=== PATIENT | male | born 1945 | race Caucasian/White ===

== ENCOUNTER → 2017-10-29 | Outpatient (CLI) | payer MEDICARE, BC ==
--- NOTE | 2017-10-29 15:54 | CT ---
EXAMINATION TYPE: CT sinus wo con DATE OF EXAM: 10/29/2017 COMPARISON: NONE HISTORY: Headaches, right sided cheek pain and dental pain. CT DLP: 673.[address] of the paranasal sinuses was performed in the axial and coronal planes. Bone and soft tissue settings are submitted. The paranasal sinuses demonstrate normal aeration and development. The paranasal sinuses are free of mucosal thickening or air fluid level. Small mucous retention cyst or polyp right maxillary sinus anterior wall. The osteal meatal units are patent bilaterally. The nasal septum is midline. No bony destructive changes are seen within the field of view. IMPRESSION: No evidence for acute or chronic sinusitis. Small mucous retention cyst or polyp right maxillary sinu s anterior wall.
== END | disposition home or self-care (01) ==
LOC: RADCTMAIN 15:26
PROVIDERS: ATTEND Family Medicine
DX: J34.1 Cyst and mucocele of nose and nasal sinus (principal)
CPT/HCPCS: 70486

== ENCOUNTER → 2017-11-26 | Outpatient (CLI) | payer MEDICARE, BC ==
--- NOTE | 2017-11-26 15:53 | XR ---
EXAMINATION TYPE: XR ankle complete RT DATE OF EXAM: 11/26/2017 COMPARISON: NONE HISTORY: 72-year-old male medial right ankle pain after fall 5 days ago TECHNIQUE: 3 views FINDINGS: There are corticated ossific densities below the medial malleolus. However, there is prominent medial soft tissue swelling. No acute fracture, subluxation, or dislocation. Ankle mortise is congruent. Ta lar dome is intact. Small plantar and posterior calcaneal spurs. Subtalar joint is aligned. IMPRESSION: Small chronic ununited fracture fragments below the medial malleolus compatible with old injury. Bello ayaka, there is prominent medial soft tissue swelling which could reflect underlying superimposed acute ligamentous injury.
== END | disposition home or self-care (01) ==
LOC: RADXRYALE 14:50
PROVIDERS: ATTEND Physician Assistant Medical
DX: S82.51XK Displaced fracture of medial malleolus of right tibia, subsequent encounter for closed fracture with nonunion (principal)

== ENCOUNTER → 2017-12-07 | Outpatient (CLI) | payer MEDICARE, BC ==
--- NOTE | 2017-12-07 14:18 | US ---
EXAMINATION TYPE: US venous doppler duplex LE RT DATE OF EXAM: 12/07/2017 2:10 PM COMPARISON: NONE CLINICAL HISTORY: M79.661 PAIN IN RT LOWER EXTREMITY. Right ankle/foot injury. Pain in right calf SIDE PERFORMED: Right TECHNIQUE: The lower extremity deep venous system is examined utilizing real time linear array sonog rosamaria with graded compression, doppler sonography and color-flow sonography. VESSELS IMAGED: External Iliac Vein (EIV) Common Femoral Vein Deep Femoral Vein Greater Saphenous Vein * Femoral Vein Popliteal Vein Small Saphenous Vein * Proximal Calf Veins (* superficial vessels) Right Leg: Negative for DVT. Positive for superficial thrombosis in the right GSV below the knee to the ankle. Grayscale, color doppler, spectral doppler imaging performed of the deep veins of the right lower ext remity. There is normal flow, compressibility, vascular waveforms. IMPRESSION: No ultrasound evidence for acute DVT in the right lower extremity. Acute SVT greater s aphenous vein level noted.
== END | disposition home or self-care (01) ==
LOC: RADUSWWP 12:59
PROVIDERS: ATTEND Family Medicine
DX: I47.1 Supraventricular tachycardia (principal)

== ENCOUNTER → 2018-01-14 | Outpatient (CLI) | payer MEDICARE, BC ==
--- NOTE | 2018-01-14 15:50 | US ---
EXAMINATION TYPE: US carotid duplex BILAT DATE OF EXAM: 01/14/2018 COMPARISON: Carotid ultrasound September 22, 2014 CLINICAL HISTORY: R42 Dizziness and Giddiness; dizziness noted with change in position EXAM MEASUREMENTS: RIGHT: Peak Systolic Velocity (PSV) cm/sec ----- Right CCA: 59.0 ----- Right ICA: 79.7 ----- Right ECA: 122.1 ICA/CCA ratio: 1.4 RIGHT: End Diastole cm/sec ----- Right CCA: 18.0 ----- Right ICA: 30.5 ----- Right ECA: 22.0 LEFT: Peak Systolic Velocity (PSV) cm/sec ----- Left CCA: 83.2 ----- Left ICA: 75.2 ----- Left ECA: 86.2 ICA/CCA ratio: 0.9 LEFT: End Diastole cm/sec ----- Left CCA: 25.9 ----- Left ICA: 25.9 ----- Left ECA: 16.3 VERTEBRALS (direction of flow): Right Vertebral: Antegrade Left Vertebral: Antegrade Rhythm: Normal Grayscale images redemonstrate mild hyperechoic eccentric plaque at right carotid bulb. There is kam lar mild eccentric hyperechoic plaque at left carotid bulb also redemonstrated. Velocity measurements and ratios remain within normal limits bilaterally. Incidental finding of left mixed thyroid nodule is noted mid pole and size = 0.7 x 0.7 x 0.4cm. IMPRESSION: No hemodynamically significant stenosis is seen in either internal carotid artery. No si gnificant change from prior.
== END | disposition home or self-care (01) ==
LOC: RADUSWWP 14:23
PROVIDERS: ATTEND Family Medicine
DX: R42 Dizziness and giddiness (principal); I80.01 Phlebitis and thrombophlebitis of superficial vessels of right lower extremity; E78.2 Mixed hyperlipidemia
CPT/HCPCS: 93880

== ENCOUNTER 2019-01-29 18:57 | Emergency (ER) | payer MEDICARE, BC ==
[2019-01-29 19:06] VITALS: RESP 16
--- NOTE | 2019-01-29 19:39 | ED ---
General Adult HPI <Joss Huang - Last Filed: 01/29/19 20:26> - General Source: patient, RN notes reviewed, old records reviewed Mode of arrival: ambulatory Limitations: no limitations <Cesar Smith - Last Filed: 01/29/19 21:09> - General Chief complaint: Head Injury Stated complaint: Head injury, headache Time Seen by Provider: 01/29/19 19:09 - History of Present Illness Initial comments: 73-year-old male patient with no pertinent past medical history presents to ED after a trauma to the back of his head. Patient reports that he was pulling a large satellite TV dish out of the ground with a tractor, patient reports that the dish fell forward and hit him on the back of his head. Patient reports that his had been continued forward into the padded steering well. Patient denies loss of consciousness. Patient does report a mild headache and is occipital lobe with the trauma occurred. Patient denies any use of blood thinners. Patient denies any other complaints. Patient denies a change in vision, loss of bowel or bladder control, paresthesias, upper or lower extremity weakness. Systemic: Pt denies fatigue, myalgia, fever/chills, rash. Pt denies weakness, night sweats, weight loss. Neuro: Pt denies headache, visual disturbances, syncope or pre-syncope. HEENT: Pt denies ocular discharge or irritation, otalgia, rhinorrhea, pharyngitis or notable lymphadenopathy. Cardiopulmonary: Pt denies chest pain, SOB, heart palpitations, dyspnea on exertion. Abdominal/GI: Pt denies abdominal pain, n/v/d. : Pt denies dysuria, burning w/ urination, frequency/urgency. Denies new onset urinary or bowel incontinence. MSK: Pt denies myalgia, loss of strength or function in extremities. Neuro: Pt denies new onset weakness, paresthesias. (Cesar Smith) - Related Data Home Medications Medication Instructions Recorded Confirmed Lansoprazole [Prevacid] 15 mg PO DAILY 02/25/15 02/25/15 Multivitamins, Thera [Theragran] 1 each PO DAILY@1200 02/25/15 02/25/15 Promethazine [Phenergan] 12.5 mg PO Q4HR 02/25/15 02/25/15 Triamcinolone 0.1% Ointment 02/25/15 02/25/15 [Kenalog 0.1% Ointment] Allergies Allergy/AdvReac Type Severity Reaction Status Date / Time acetaminophen [From [place]] Allergy Unknown Verified 01/29/19 19:06 amoxicillin Allergy Unknown Verified 01/29/19 19:06 bupropion HCl Allergy Unknown Verified 01/29/19 19:06 [From Wellbutrin] citalopram hydrobromide Allergy Unknown Verified 01/29/19 19:06 [From Celexa] hydrocodone bitartrate Allergy Unknown Verified 01/29/19 19:06 [From [place]] Penicillins Allergy Unknown Verified 01/29/19 19:06 promethazine HCl AdvReac Unknown Verified 01/29/19 19:06 [From Phenergan] Review of Systems ROS Other: All systems not noted in ROS Statement are negative. <Joss Huang - Last Filed: 01/29/19 20:26> ROS Other: All systems not noted in ROS Statement are negative. <Cesar Smith - Last Filed: 01/29/19 21:09> ROS Statement: Those systems with pertinent positive or pertinent negative responses have been documented in the HPI. Past Medical History Past Medical History: GERD/Reflux, Hyperlipidemia, Prostate Disorder Additional Past Medical History / Comment(s): HPYLORI, DEGENERATIVE DISC, DIVERTICULOSIS History of Any Multi-Drug Resistant Organisms: None Reported Past Surgical History: Cholecystectomy Additional Past Surgical History / Comment(s): RECTAL FISSURE, RIGHT SHOULDER Past Psychological History: Depression Smoking Status: Never smoker Past Alcohol Use History: None Reported Past Drug Use History: None Reported <Cesar Smith - Last Filed: 01/29/19 21:09> General Exam Limitations: no limitations <Cesar Smith - Last Filed: 01/29/19 21:09> - General Exam Comments Initial Comments: Constitutional: NAD, AOX3, Pt has pleasant affect. HEENT: NC/AT, trachea midline, neck supple, no lymphadenopathy. Posterior pharynx non erythematous, without exudates. External ears appear normal, without discharge. Mucous membranes moist. Eyes PERRLA, EOM intact. There is no scleral icterus. No pallor noted. Cardiopulmonary: RRR, no murmurs, rubs or gallops, no JVD noted. Lungs CTAB in anterior and posterior alvares. No peripheral edema. Abdominal exam: Abdomen soft and non-distended. Abdomen non-tender to palpation in all 4 quadrants. Bowel sounds active in LLQ. No hepatosplenomegaly. No ecchymosis Neuro: CN II-XII intact. No nuchal rigidity. No posadas sign, no raccoon eyes. No facial droop or focal deficit. MSK: No posterior calf tenderness bilaterally, homans sign negative bilaterally. Posterior tibialis and radial pulse +2 bilaterally. Sensation intact in upper and lower extremities. Full active ROM in upper and lower extremities, 5/5 stregnth. (Cesar Smith) Course <Joss Huang - Last Filed: 01/29/19 20:26> Vital Signs 01/29/19 19:04 Temperature 98.2 F Pulse Rate 80 Respiratory 16 Rate Blood Pressure 137/81 O2 Sat by Pulse 95 Oximetry - Reevaluation(s) Reevaluation #1: 01/29/19 20:26 PA supervision: I proceeded [id number] evaluation the patient. He did present with complaints of headache with occipital and frontal. This seemed to be unrelated to the head trauma he experienced prior to admission. He has been having trouble with vision this is since the cataract surgery this past fall. CAT scan was performed the incidental finding of a brain mass was noted. This time no evidence of mass effect. After long discussion with the patient was discussed with the patient should be transferred to [facility] for evaluation. He would like to drive himself there he will be taken by his family member. I do agree with the assessment and plan. (Joss Huang) Medical Decision Making <Cesar Smith - Last Filed: 01/29/19 21:09> - Medical Decision Making 73-year-old male patient with no pertinent past medical history presents to ED after a trauma to the back of his head. Patient reports that he was pulling a large satellite TV dish out of the ground with a tractor, patient reports that the dish fell forward and hit him on the back of his head. Patient reports that his had been continued forward into the padded steering well. Patient denies loss of consciousness. Patient does report a mild headache and is occipital lobe with the trauma occurred. Patient denies any use of blood thinners. Patient denies any other complaints. Patient denies a change in vision, loss of bowel or bladder control, paresthesias, upper or lower extremity weakness. Patient vital signs stable, afebrile. Physical exam displayed: CN II-XII intact. No nuchal rigidity. No posadas sign, no raccoon eyes. No facial droop or focal deficit. CT of brain displayed [id number] sellar mass. Patient will be transferred to [facility] for neurosurgical evaluation. Pt traveling via EMS, Case discussed and patient seen by Dr. Huang. (Cesar Smith) Disposition <Joss Huang - Last Filed: 01/29/19 20:26> Is patient prescribed a controlled substance at d/c from ED?: No - Out of Hospital Transfer - Req. Specs Out of Hospital Transfer - Requested Specifics: Other Emergency Center (neurosurgery evaluation) <Cesar Smith - Last Filed: 01/29/19 21:09> Clinical Impression: Fall, Intracranial mass Disposition: OTHER INSTITUTION NOT DEFINED Condition: Serious Instructions (If sedation given, give patient instructions): Fall Prevention for Older Adults (ED) Referrals: Wilfredo Haile DO [Primary Care Provider] - 1-2 days
--- NOTE | 2019-01-29 19:39 | CT ---
EXAMINATION TYPE: CT brain porfirio adhikari DATE OF EXAM: 01/29/2019 COMPARISON: None HISTORY: Head injury from falling object CT DLP: 1468 mGycm Automated exposure control for dose reduction was used. TECHNIQUE: CT scan of the head and cervical spine are performed without contrast. FINDINGS: There is cerebral cortical atrophy. There is no mass effect nor midline shift. There is n o sign of intracranial hemorrhage. The calvarium is intact. There is a 13 x 16 x 21 mm sellar mass. T here is impingement on the optic chiasm. Cervical vertebra have normal alignment. There is degenerative disc space narrowing at C3-4 with spur formation. There is minimal facet arthropathy. There is no cervical spine compression fracture. Skul l base is intact. Posterior elements are intact. IMPRESSION: No acute intracranial abnormality. Large sellar mass consistent with tumor. Follow-up recommended. Spondylotic changes in the cervical spine. No fracture.
--- NOTE | 2019-01-29 21:11 | ED ---
Medical Decision Making - Medical Decision Making accepting physician Dr. Ignacio in [facility]. Disposition Clinical Impression: Fall, Intracranial mass Disposition: OTHER INSTITUTION NOT DEFINED Condition: Serious Instructions (If sedation given, give patient instructions): Fall Prevention for Older Adults (ED) Is patient prescribed a controlled substance at d/c from ED?: No Referrals: Wilfredo Haile DO [Primary Care Provider] - 1-2 days - Out of Hospital Transfer - Req. Specs Out of Hospital Transfer - Requested Specifics: Other Emergency Center
[2019-01-29 22:01] VITALS: BP 141/81; PULSE 95; TEMP 98.1
== END 2019-01-29 22:05 | disposition other institution (70) ==
LOC: EC 18:57
DX: G93.9 Disorder of brain, unspecified (principal); K21.9 Gastro-esophageal reflux disease without esophagitis; Z79.899 Other long term (current) drug therapy; Z88.6 Allergy status to analgesic agent; Z88.0 Allergy status to penicillin; Z88.8 Allergy status to other drugs, medicaments and biological substances; Z88.5 Allergy status to narcotic agent; W20.8XXA Other cause of strike by thrown, projected or falling object, initial encounter; Y93.89 Activity, other specified
CPT/HCPCS: 70450; 72125; 99285

== ENCOUNTER 2019-05-01 14:25 | Emergency (ER) | payer MEDICARE, BC ==
[2019-05-01 14:33] VITALS: RESP 16
--- NOTE | 2019-05-01 15:02 | ED ---
General Adult HPI - General Chief complaint: ENT Stated complaint: NOSEBLEED Time Seen by Provider: 05/01/19 14:36 Source: patient, EMS Mode of arrival: EMS Limitations: no limitations - History of Present Illness Initial comments: Dictation was produced using [employer] dictation software. please excuse any grammatical, word or spelling errors. Chief Complaint: 73-year-old male brought in by family for epistaxis. History of Present Illness: 73-year-old male proximal 2 weeks ago he had transsphenoidal surgery for pituitary adenoma removal. After the surgery he had nasal packing placed. 3 or 4 days ago he had the nasal packing removed. Since having the packing removed he would have intermittent episodes of nasal blee ding. He states that the bleeding is. His significant and worrisome. They were trying to get a hold of patient's ENT surgeon however were not able to. They came to the emergency department. Patient states that today he had a significant bleeding episode with bradycardia that goes down the back of the throat. While waiting the emergency department his bleeding stopped. Patient has no other complaints at this time. Patient does wear CPAP machine at night. The ROS documented in this emergency department record has been reviewed and confirmed by me. Those systems with pertinent positive or negative responses have been documented in the HPI. All other systems are other negative and/or noncontributory. PHYSICAL EXAM: General Impression: Alert and oriented x3, not in acute distress HEENT: Normocephalic atraumatic, extra-ocular movements intact, pupils equal and reactive to light bilaterally, mucous membranes moist, dried blood at bilateral naris, no posterior oropharynx bleeding Cardiovascular: Heart regular rate and rhythm, S1&S2 audible, no murmurs, rubs or gallops Chest: Lungs clear to auscultation bilaterally, no rhonchi, no wheeze, no rales Abdomen: Bowel sounds present, abdomen soft, non-tender, non-distended, no organomegaly Musculoskeletal: Pulses present and equal in all extremities, no peripheral edema Motor: no focal deficits noted Neurological: CN II-XII grossly intact, no focal motor or sensory deficits noted Skin: Intact with no visualized rashes Psych: Normal affect and mood ED course: 73-year-old male presents with epistaxis. He had recent transsph enoidal surgery and had packing removed. Signs upon arrival shows heart rate of 116, rest of vital signs within acceptable limits. Discussed patient case with Dr. Allen ENT doctor out of [facility] performed the transphenoidal axis to the patient's pituitary surgery. Request that we obtain a CBC to see what his hemoglobin is. His hemoglobin is 13.2 Dr. Allen was recontacted and recommended no intervention be performed at this time. He did recommend provide a prescription for Afrin nasal spray. He left his phone number in case patient returns to the emergency department. [phone]. Patient counseled on adequate epistaxis bleeding control. Told to avoid high wind environments including areas next to Fans or furnaces. Return parameters discussed. No active hemorrhaging while in the emergency department. Patient clear for discharge. Patient instructed to follow-up with ENT surgeon this week. - Related Data Home Medications Medication Instructions Recorded Confirmed Butalb/APAP/Caff 50-325-40Mg 2 tab PO Q4H PRN 05/01/19 05/01/19 [Fioricet 50-325-40] Docusate [Colace] 100 mg PO TID 05/01/19 05/01/19 Famotidine [Pepcid] 20 mg PO Q12HR 05/01/19 05/01/19 Hydrocortisone [Cortef] 10 mg PO HS 05/01/19 05/01/19 Hydrocortisone [Cortef] 20 mg PO DAILY 05/01/19 05/01/19 Previous Rx's Medication Instructions Recorded Oxymetazoline 0.05% Nasl [place] 3 spray EA NOSTRIL TID PRN 3 Days 05/01/19 [Afrin 0.05% Nasal [place]] bottle Allergies Allergy/AdvReac Type Severity Reaction Status Date / Time acetaminophen [From [place]] Allergy Unknown Verified 05/01/19 14:34 amoxicillin Allergy Unknown Verified 05/01/19 14:34 bacitracin Allergy Unknown Verified 05/01/19 15:14 bupropion HCl Allergy Unknown Verified 05/01/19 14:34 [From Wellbutrin] citalopram hydrobromide Allergy Unknown Verified 05/01/19 14:34 [From Celexa] epoxy resin Allergy Unknown Verified 05/01/19 15:14 gold sodium thiomalate Allergy Unknown Verified 05/01/19 15:14 hydrocodone bitartrate Allergy Unknown Verified 05/01/19 14:34 [From [place]] Penicillins Allergy Unknown Verified 05/01/19 14:34 promethazine HCl AdvReac Unknown Verified 05/01/19 14:34 [From Phenergan] EUXYL 400 Allergy Unknown Uncoded 05/01/19 15:14 Review of Systems ROS Statement: Those systems with pertinent positive or pertinent negative responses have been documented in the HPI. ROS Other: All systems not noted in ROS Statement are negative. Past Medical History Past Medical History: GERD/Reflux, Hyperlipidemia, Prostate Disorder Additional Past Medical History / Comment(s): HPYLORI, DEGENERATIVE DISC, DIVERTICULOSIS History of Any Multi-Drug Resistant Organisms: None Reported Past Surgical History: Cholecystectomy Additional Past Surgical History / Comment(s): RECTAL FISSURE, RIGHT SHOULDER, removal of tumor from pituitary gland 04/19/19. Past Psychological History: Depression Smoking Status: Never smoker Past Alcohol Use History: None Reported Past Drug Use History: None Reported General Exam Limitations: no limitations Course Vital Signs 05/01/19 05/01/19 14:28 15:53 Temperature 98.6 F Pulse Rate 116 H Respiratory 16 16 Rate Blood Pressure 140/84 O2 Sat by Pulse 96 Oximetry Medical Decision Making - Lab Data Result diagrams: 05/01/19 15:45 Lab Results 05/01/19 05/01/19 Range/Units 15:45 15:45 WBC 11.4 H (3.8-10.6) k/uL RBC 4.37 (4.30-5.90) m/uL Hgb 13.2 (13.0-17.5) gm/dL Hct 40.2 (39.0-53.0) % MCV 92.0 (80.0-100.0) fL MCH 30.2 (25.0-35.0) pg MCHC 32.9 (31.0-37.0) g/dL RDW 13.8 (11.5-15.5) % Plt Count 372 (150-450) k/uL Neutrophils % 82 % Lymphocytes % 10 % Monocytes % 5 % Eosinophils % 1 % Basophils % 1 % Neutrophils # 9.4 H (1.3-7.7) k/uL Lymphocytes # 1.2 (1.0-4.8) k/uL Monocytes # 0.5 (0-1.0) k/uL Eosinophils # 0.1 (0-0.7) k/uL Basophils # 0.1 (0-0.2) k/uL PT 10.1 (9.0-12.0) sec INR 0.9 (<1.2) Disposition Clinical Impression: Epistaxis Disposition: HOME SELF-CARE Condition: Good Instructions (If sedation given, give patient instructions): Nosebleed (ED) Additional Instructions: make appointment with Dr. Allen this week Prescriptions: Oxymetazoline 0.05% Nasl [place] [Afrin 0.05% Nasal [place]] 3 spray EA NOSTRIL TID PRN 3 Days bottle PRN Reason: nose bleed Is patient prescribed a controlled substance at d/c from ED?: No Referrals: Wilfredo Haile DO [Primary Care Provider] - 1-2 days Time of Disposition: 16:39
[2019-05-01 16:08] LABS: Basophils # (A) 0.1 k/uL (0-0.2); Basophils % (A) 1 %; Eosinophils # (A) 0.1 k/uL (0-0.7); Eosinophils % (A) 1 %; HCT 40.2 % (39.0-53.0); HGB 13.2 gm/dL (13.0-17.5); Lymphocytes # (A) 1.2 k/uL (1.0-4.8); Lymphocytes % (A) 10 %; MCH 30.2 pg (25.0-35.0); MCHC 32.9 g/dL (31.0-37.0); Mean Platelet Volume 7.3; Monocytes # (A) 0.5 k/uL (0-1.0); Monocytes % (A) 5 %; Neutrophils # (A) 9.4 k/uL (1.3-7.7); Neutrophils % (A) 82 %; Platelet Count 372 k/uL (150-450); RBC 4.37 m/uL (4.30-5.90); RDW 13.8 % (11.5-15.5); WBC 11.4 k/uL (3.8-10.6)
[2019-05-01 16:18] LABS: INR 0.9 (<1.2); Prothrombin Time 10.1 sec (9.0-12.0)
[2019-05-01 16:56] VITALS: BP 138/93; PULSE 81; TEMP 98
== END 2019-05-01 16:50 | disposition home or self-care (01) ==
LOC: EC 14:25
DX: R04.0 Epistaxis (principal); K21.9 Gastro-esophageal reflux disease without esophagitis; Z88.0 Allergy status to penicillin; Z88.1 Allergy status to other antibiotic agents; Z88.5 Allergy status to narcotic agent; Z88.6 Allergy status to analgesic agent; Z88.8 Allergy status to other drugs, medicaments and biological substances; Z91.048 Other nonmedicinal substance allergy status; Z79.52 Long term (current) use of systemic steroids; Z79.899 Other long term (current) drug therapy; Z87.39 Personal history of other diseases of the musculoskeletal system and connective tissue; Z99.89 Dependence on other enabling machines and devices
CPT/HCPCS: 36415; 85025; 85610; 99283

== ENCOUNTER 2019-05-01 23:15 | Emergency (ER) | payer MEDICARE, BC ==
[2019-05-01 23:30] VITALS: RESP 18; TEMP 97.6
[2019-05-01] MEDS ORDERED: SODIUM CHLORIDE 0.9% 500 ML 500 ML IV STA (23:42)
[2019-05-01] MEDS ORDERED: SODIUM CHLORIDE 0.9% 1,000 ML IV STA (23:42)
--- NOTE | 2019-05-02 00:12 | ED ---
ENT HPI - General Chief complaint: ENT Stated complaint: nose bleed-post op Time Seen by Provider: 05/01/19 23:29 Source: patient, EMS, RN notes reviewed, old records reviewed Mode of arrival: EMS Limitations: no limitations - History of Present Illness Initial comments: This is a 73-year-old male the ER for evaluation. Patient is postop of intranasal into intracranial surgical resection of pituitary tumor. Patient had surgery done at [facility] about 2 weeks ago [facility]. Patient has had bleeding ever since packing is removed. Multiple episodes of bleeding. Bradycardia near syncope. Patient is significantly anxious and having persistent bleeding from bilateral nares. No blood thinners, no other blood pressur elevated MD complaint: epistaxis, other (postopeative bleeding) -: days(s) Location: nose Severity: moderate Severity scale (1-10): 4 Consistency: intermittent Improves with: none Worsens with: none Context-Epistaxis: recent surgery/procedure Associated Symptoms: other (near syncope, episodes of bradycardia) - Related Data Home Medications Medication Instructions Recorded Confirmed Butalb/APAP/Caff 50-325-40Mg 2 tab PO Q4H PRN 05/01/19 05/01/19 [Fioricet 50-325-40] Docusate [Colace] 100 mg PO TID 05/01/19 05/01/19 Famotidine [Pepcid] 20 mg PO Q12HR 05/01/19 05/01/19 Hydrocortisone [Cortef] 10 mg PO HS 05/01/19 05/01/19 Hydrocortisone [Cortef] 20 mg PO DAILY 05/01/19 05/01/19 Previous Rx's Medication Instructions Recorded Oxymetazoline 0.05% Nasl [place] 3 spray EA NOSTRIL TID PRN 3 Days 05/01/19 [Afrin 0.05% Nasal [place]] bottle Allergies Allergy/AdvReac Type Severity Reaction Status Date / Time acetaminophen [From [place]] Allergy Unknown Verified 05/01/19 23:35 amoxicillin Allergy Unknown Verified 05/01/19 23:35 bacitracin Allergy Unknown Verified 05/01/19 23:35 bupropion HCl Allergy Unknown Verified 05/01/19 23:35 [From Wellbutrin] citalopram hydrobromide Allergy Unknown Verified 05/01/19 23:35 [From Celexa] epoxy resin Allergy Unknown Verified 05/01/19 23:35 gold sodium thiomalate Allergy Unknown Verified 05/01/19 23:35 hydrocodone bitartrate Allergy Unknown Verified 05/01/19 23:35 [From Maceo] Penicillins Allergy Unknown Verified 05/01/19 23:35 promethazine HCl AdvReac Unknown Verified 05/01/19 23:35 [From Phenergan] EUXYL 400 Allergy Unknown Uncoded 05/01/19 15:14 Review of Systems ROS Statement: Those systems with pertinent positive or pertinent negative responses have been documented in the HPI. ROS Other: All systems not noted in ROS Statement are negative. Past Medical History Past Medical History: GERD/Reflux, Hyperlipidemia, Prostate Disorder Additional Past Medical History / Comment(s): HPYLORI, DEGENERATIVE DISC, DIVERTICULOSIS History of Any Multi-Drug Resistant Organisms: None Reported Past Surgical History: Cholecystectomy Additional Past Surgical History / Comment(s): RECTAL FISSURE, RIGHT SHOULDER, removal of tumor from pituitary gland 04/19/19. cataract suregery right eye Past Psychological History: Depression Smoking Status: Never smoker Past Alcohol Use History: None Reported Past Drug Use History: None Reported General Exam Limitations: no limitations General appearance: alert, in no apparent distress, anxious Head exam: Present: atraumatic, normocephalic, normal inspection Eye exam: Present: normal appearance, PERRL, EOMI. Absent: scleral icterus, conjunctival injection, periorbital swelling ENT exam: Present: other (bilateral epistaxis) Neck exam: Present: normal inspection. Absent: tenderness, meningismus, lymphadenopathy Respiratory exam: Present: normal lung sounds bilaterally. Absent: respiratory distress, wheezes, rales, rhonchi, stridor Cardiovascular Exam: Present: normal rhythm, tachycardia, normal heart sounds. Absent: systolic murmur, diastolic murmur, rubs, gallop, clicks GI/Abdominal exam: Present: soft, normal bowel sounds. Absent: distended, tenderness, guarding, rebound, rigid Extremities exam: Present: normal inspection, full ROM, normal capillary refill. Absent: tenderness, pedal edema, joint swelling, calf tenderness Back exam: Present: normal inspection Neurological exam: Present: alert, oriented X3, CN II-XII intact Psychiatric exam: Present: normal affect, normal mood Skin exam: Present: warm, dry, intact, normal color. Absent: rash Course Vital Signs 07/28/19 23:26 Temperature 97.6 F Pulse Rate 110 H Respiratory 18 Rate Blood Pressure 123/75 O2 Sat by Pulse 100 Oximetry Disposition Clinical Impression: Epistaxis, Postsurgical epistaxis, Near syncope, Bradycardia Narrative: Postoperative Bleeding Disposition: OTHER INSTITUTION NOT DEFINED Condition: Good Is patient prescribed a controlled substance at d/c from ED?: No Referrals: Wilfredo Haile DO [Primary Care Provider] - 1-2 days - Out of Hospital Transfer - Req. Specs Out of Hospital Transfer - Requested Specifics: Other Emergency Center ([facility])
[2019-05-02 00:28] LABS: Basophils # (A) 0.1 k/uL (0-0.2); Basophils % (A) 0 %; Eosinophils # (A) 0.1 k/uL (0-0.7); Eosinophils % (A) 0 %; HCT 37.1 % (39.0-53.0); HGB 11.8 gm/dL (13.0-17.5); Lymphocytes # (A) 1.7 k/uL (1.0-4.8); Lymphocytes % (A) 9 %; MCH 29.4 pg (25.0-35.0); MCHC 31.8 g/dL (31.0-37.0); MCV 92.5 fL (80.0-100.0); Mean Platelet Volume 8.2; Monocytes # (A) 1.1 k/uL (0-1.0); Monocytes % (A) 5 %; Neutrophils # (A) 16.5 k/uL (1.3-7.7); Neutrophils % (A) 85 %; Platelet Count 395 k/uL (150-450); RBC 4.02 m/uL (4.30-5.90); RDW 13.9 % (11.5-15.5); WBC 19.6 k/uL (3.8-10.6)
[2019-05-02 00:39] LABS: Prothrombin Time 10.5 sec (9.0-12.0)
[2019-05-02 00:45] LABS: Partial Thromboplastin Time 21.4 sec (22.0-30.0)
[2019-05-02 04:38] VITALS: BP 130/78; PULSE 76
== END 2019-05-02 01:00 | disposition other institution (70) ==
LOC: EC 23:15
DX: R04.0 Epistaxis (principal); E89.810 Postprocedural hemorrhage of an endocrine system organ or structure following an endocrine system procedure; R00.1 Bradycardia, unspecified; R55 Syncope and collapse; K21.9 Gastro-esophageal reflux disease without esophagitis; Z90.49 Acquired absence of other specified parts of digestive tract; Z98.890 Other specified postprocedural states; Z87.19 Personal history of other diseases of the digestive system; Z79.52 Long term (current) use of systemic steroids; Z79.899 Other long term (current) drug therapy; Z88.0 Allergy status to penicillin; Z88.1 Allergy status to other antibiotic agents; Z88.5 Allergy status to narcotic agent; Z88.8 Allergy status to other drugs, medicaments and biological substances; Z91.048 Other nonmedicinal substance allergy status; Y83.8 Other surgical procedures as the cause of abnormal reaction of the patient, or of later complication, without mention of misadventure at the time of the procedure
CPT/HCPCS: 36415; 83605; 84484; 85025; 85610; 85730; 96360; 96361; 99283; 99285

== ENCOUNTER 2021-02-06 10:30 | Day surgery (SDC) | payer MEDICARE, BC ==
[2021-02-05 08:32] VITALS: BMI 29.0
[~2021-02-06 10:30] MED LIST: LACTATED RINGERS 1,000 ML IV SCH; LIDOCAINE 1% (10MG/ML) FOR IV START INTRADERMA PRN
[2021-02-06 11:14] VITALS: TEMP 98
[2021-02-06] MEDS ORDERED: LIDOCAINE 1% INJ 10MG/ML (20 ML MDV) ONE (12:01)
[2021-02-06] MEDS ORDERED: PROPOFOL 10 MG/ML 20 ML VIAL IV ONE (12:01)
[2021-02-06] MEDS ORDERED: GLYCOPYRROLATE 0.2 MG/ML 2 ML VIAL ONE (12:01)
--- NOTE | 2021-02-06 12:25 | P.PCN ---
Date of Procedure: 02/06/21 Procedure(s) Performed: Brief history: Patient is a pleasant 75-year-old white male scheduled for an elective upper endoscopy as well as colonoscopy as a part of evaluation of GERD and altered bowel movements for the last 6 months duration Procedure performed: Esophagogastroduodenoscopy with biopsy Colonoscopy Preoperative diagnosis: GERD Altered bowel movements of 6 months Anesthesia: MAC Procedure: After informed consent was obtained from the patient was brought into the endoscopy unit and IV sedation was administered by anesthesia under continuous monitoring. Initially upper endoscopy was done. The Olympus GF 160 video endoscope was inserted inserted into the mouth and esophagus intubated without any difficulty and was gradually advanced into the stomach and duodenum and carefully examined. The bulb and second part of the duodenum appeared normal. The scope was then withdrawn into the stomach adequately insufflated with air and upon careful examination the antrum had mild gastritis and biopsies were done from this area. The body, cardia and fundus appeared normal. The scope was then withdrawn into the esophagus. The GE junction was located at 40 cm to the incisors. It appeared regular with one superficial erosion consistent with LA grade a reflux esophagitis. Rest of the esophagus appeared normal. Patient tolerated the procedure well. At this time the patient continued to remain sedation. Initial digital rectal examination was normal. Olympus CF 160 video colonoscope was then inserted into the rectum and gradually advanced to the cecum without any difficulty. Careful examination was performed as the scope was gradually being withdrawn. The prep was excellent. The cecum, ascending colon, transverse colon, descending colon, sigmoid colon and rectum appeared normal. Scattered sigmoid diverticulosis. Retroflexion was performed in the rectum and no lesions were noted. Patient tolerated the procedure well. Impression: 1. Upper endoscopy revealed mild antral gastritis and LA grade A reflux esophagitis 2. Colonoscopy revealed scattered sigmoid diverticulosis but no evidence of colorectal neoplasia Recommendations: Findings of this examination were discussed with the patient as well as his family. He was advised to follow with the biopsy results. He'll continue with Prilosec 20 mg daily and follow antireflux measures. He was advised to start on fiber supplements every day
[2021-02-06 12:38] VITALS: RESP 16
[2021-02-06 13:19] VITALS: BP 112/67; PULSE 65
== END 2021-02-06 14:02 | disposition home or self-care (01) ==
LOC: ORWHC2ENDO 10:30
PROVIDERS: ATTEND Internal Medicine Gastroenterology
DX: K29.50 Unspecified chronic gastritis without bleeding (principal); K57.30 Diverticulosis of large intestine without perforation or abscess without bleeding; K21.00 Gastro-esophageal reflux disease with esophagitis, without bleeding; E78.5 Hyperlipidemia, unspecified; N42.9 Disorder of prostate, unspecified; M19.90 Unspecified osteoarthritis, unspecified site; F32.9 Major depressive disorder, single episode, unspecified; Z79.899 Other long term (current) drug therapy; Z88.5 Allergy status to narcotic agent; Z88.0 Allergy status to penicillin; Z88.8 Allergy status to other drugs, medicaments and biological substances
CPT/HCPCS: 88305; 45378; 43239; J2001; J2704

== ENCOUNTER 2021-02-11 03:33 | Observation (INO) | payer MEDICARE, BC ==
[2021-02-11] MEDS ORDERED: SODIUM CHLORIDE 0.9% 1,000 ML IV STA (03:55)
[2021-02-11] MEDS ORDERED: PANTOPRAZOLE 40 MG/10 ML VIAL IVP STA (03:55)
--- NOTE | 2021-02-11 03:56 | ED ---
Abdominal Pain HPI - General Chief Complaint: Abdominal Pain Stated Complaint: Abdominal Pain Time Seen by Provider: 02/11/21 03:54 Source: patient, family Mode of arrival: wheelchair Limitations: no limitations - Related Data Home Medications Medication Instructions Recorded Confirmed ALPRAZolam [Xanax] 0.25 mg PO DAILY PRN 02/05/21 02/05/21 Baclofen [Lioresal] 10 mg PO HS PRN 02/05/21 02/05/21 Fenofibrate 160 mg PO DAILY 02/05/21 02/05/21 Latanoprost/Pf [Latanoprost 0.005% 1 drop BOTH EYES HS 02/05/21 02/05/21 Eye Drop] Omeprazole 20 mg PO DAILY 02/05/21 02/05/21 Ondansetron HCl [Zofran] 4 mg PO Q8H PRN 02/05/21 02/05/21 Tamsulosin [Flomax] 0.4 mg PO DAILY 02/05/21 02/05/21 Allergies Allergy/AdvReac Type Severity Reaction Status Date / Time acetaminophen [From [place]] Allergy Unknown Verified 02/11/21 03:42 amoxicillin Allergy Unknown Verified 02/11/21 03:42 bacitracin Allergy Unknown Verified 02/11/21 03:42 bupropion HCl Allergy Unknown Verified 02/11/21 03:42 [From Wellbutrin] citalopram hydrobromide Allergy Unknown Verified 02/11/21 03:42 [From Celexa] epoxy resin Allergy Unknown Verified 02/11/21 03:42 gold sodium thiomalate Allergy Unknown Verified 02/11/21 03:42 hydrocodone bitartrate Allergy Unknown Verified 02/11/21 03:42 [From [place]] Penicillins Allergy Unknown Verified 02/11/21 03:42 morphine AdvReac Nausea & Verified 02/11/21 03:42 Vomiting promethazine HCl AdvReac Unknown Verified 02/11/21 03:42 [From Phenergan] EUXYL 400 Allergy Unknown Uncoded 02/11/21 03:42 Review of Systems ROS Statement: Those systems with pertinent positive or pertinent negative responses have been documented in the HPI. ROS Other: All systems not noted in ROS Statement are negative. 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 cataract sx moses eye, colonoscopy Past Anesthesia/Blood Transfusion Reactions: No Reported Reaction Past Psychological History: Depression Smoking Status: Former smoker Past Alcohol Use History: None Reported Past Drug Use History: None Reported General Exam Limitations: no limitations Course Vital Signs 02/11/21 03:37 Temperature 97.8 F Pulse Rate 79 Respiratory 20 Rate Blood Pressure 137/86 O2 Sat by Pulse 98 Oximetry Disposition Referrals: Wilfredo Haile DO [Primary Care Provider] - 1-2 days
[2021-02-11] MEDS: ONDANSETRON 4 MG/2 ML VIAL IVP STA ×2 (04:34→10:53)
[2021-02-11 04:35] LABS: Basophils # (A) 0.1 k/uL (0-0.2); Basophils % (A) 1 %; Eosinophils # (A) 0.2 k/uL (0-0.7); Eosinophils % (A) 3 %; HGB 15.9 gm/dL (13.0-17.5); Lymphocytes # (A) 1.7 k/uL (1.0-4.8); Lymphocytes % (A) 33 %; MCH 31.1 pg (25.0-35.0); MCHC 34.6 g/dL (31.0-37.0); MCV 89.9 fL (80.0-100.0); Mean Platelet Volume 7.5; Monocytes # (A) 0.3 k/uL (0-1.0); Monocytes % (A) 6 %; Neutrophils # (A) 2.9 k/uL (1.3-7.7); Neutrophils % (A) 55 %; Platelet Count 198 k/uL (150-450); RBC 5.11 m/uL (4.30-5.90); RDW 12.7 % (11.5-15.5); WBC 5.2 k/uL (3.8-10.6)
[2021-02-11 04:51] LABS: Albumin 4.5 g/dL (3.5-5.0); Calcium 9.6 mg/dL (8.4-10.2); Potassium 4.4 mmol/L (3.5-5.1); Total Bilirubin 0.6 mg/dL (0.2-1.3); Total Protein 7.5 g/dL (6.3-8.2)
[2021-02-11 04:59] LABS: Appearance,Urine Clear (Clear); Bilirubin,Urine Negative (Negative); Blood,Urine Negative (Negative); Color,Urine Light Yellow; Glucose,Urine (UA) Negative (Negative); Ketones,Urine Negative (Negative); Leukocyte Esterase,Urine Negative (Negative); Nitrite,Urine Negative (Negative); Protein,Urine Negative (Negative); Specific Gravity,Urine 1.011 (1.001-1.035); Urobilinogen,Urine <2.0 mg/dL (<2.0)
[2021-02-11] MEDS ORDERED: DICYCLOMINE 10 MG/ML 2 ML AMP IM STA (05:10)
[2021-02-11] MEDS ORDERED: KETOROLAC 15 MG/ML 1 ML VIAL IVP STA (05:10)
[2021-02-11] MEDS ORDERED: METOCLOPRAMIDE 5 MG/ML 2 ML VIAL IVP STA (05:10)
--- NOTE | 2021-02-11 06:06 | CT ---
ADDENDUM - Added by Logan Irene M.D. on 02/11/2021 6:44 AM (-04:00) Typo correction and clarification: IMPRESSION: Distal appendix is dilated to 8 mm in maximum diameter, without surrounding mesenteric inflammation, can still be patient's baseline. Early appendicitis cannot be excluded. Please correlate with clinical and laboratory findings. EXAM: CT Abdomen and Pelvis With Intravenous Contrast CLINICAL HISTORY: Lower Abd Pain after recent colonoscopy, hx: cholecystectomy TECHNIQUE: Axial computed tomography images of the abdomen and pelvis with 100 mL Isovue-300 Intravenous contrast. CTDI is 23.17 mGy and DLP is 1119.7 mGy-cm. This CT exam was performed using one or more of the following dose reduction techniques: automated exposure control, adjustment of the mA and/or kV according to patient size, and/or use of iterative reconstruction technique. Coronal and sagittal reformatted images were created and reviewed. COMPARISON: Abdominal radiographs from 02/25/15 FINDINGS: Lung bases: Unremarkable. No mass. No consolidation. ABDOMEN: Liver: Mildly enlarged fatty liver. Gallbladder and bile ducts: Unremarkable. No calcified stones. No ductal dilation. Pancreas: Unremarkable. No mass. No ductal dilation. Spleen: Unremarkable. No splenomegaly. Adrenals: Unremarkable. No mass. Kidneys and ureters: Bilateral renal cysts. Largest is in the left kidney measuring up to 2.6 cm. Stomach and bowel: Mild colonic diverticulosis. No obstruction. No mucosal thickening. PELVIS: Appendix: Distal appendix is dilated to 8 mm in maximum diameter, without surrounding mesenteric inflammation, history be patient's baseline. Bladder: Unremarkable. No mass. Reproductive: Unremarkable as visualized. ABDOMEN and PELVIS: Intraperitoneal space: Unremarkable. No free air. No significant fluid collection. Bones/joints: Degenerative disc disease is worse at L5-S1. Osteopenia. No acute findings. Soft tissues: Unremarkable. Vasculature: Unremarkable. No abdominal aortic aneurysm. Lymph nodes: Unremarkable. No enlarged lymph nodes. IMPRESSION: Distal appendix is dilated to 8 mm in maximum diameter, without surrounding mesenteric inflammation, history be patient's baseline. Early appendicitis cannot be excluded. <MYCVCSECTION> Communications: 02/11/21 06:45 Verify Receipt Verified receipt with ER [employer], given to Dr. Dickens on 02/11 06:45 (-04:00)
[2021-02-11] MEDS ORDERED: SODIUM CHLORIDE 0.9% 1,000 ML IV ONE (06:58)
[2021-02-11] MEDS ORDERED: ONDANSETRON 4 MG/2 ML VIAL IVP PRN (09:40)
--- NOTE | 2021-02-11 09:48 | P.GSHP ---
History of Present Illness H&P Date: 02/11/21 CHIEF COMPLAINT: Abdominal pain HISTORY OF PRESENT ILLNESS: This is a 75-year-old male with a known history of GERD, hyperlipidemia, diverticulosis, BPH and a prior laparoscopic cholecystectomy. Patient comes into the emergency room due to increasing lower abdominal pain. Patient reports that he has been having abdominal pain for about 2 months. He reports that the pain as started in the right lower quadrant and radiates across the lower abdomen. Over the last few days the pain continued to worsen. He rated the pain as 7 out of 10. Currently he has just mild discomfort. He also has been having nausea no vomiting. Denies any fever chills or sweats. Denies any difficulty urinating. He had a computed tomography scan of the abdomen and pelvis shows distal appendix is dilated to 8 mm in maximum diameter without surrounding mesenteric inflammation. Can still be patient's baseline. Early appendicitis cannot be excluded. Patient has been admitted to the hospital for appendicitis. Patient denies any cardiac history. PAST MEDICAL HISTORY: See list. PAST SURGICAL HISTORY: See list. MEDICATIONS: See list. ALLERGIES: See list. SOCIAL HISTORY: No illicit drug use. REVIEW OF SYSTEMS: CONSTITUTIONAL: Denies fever or chills. HEENT: Denies blurred vision, vision changes, or eye pain. Denies hemoptysis CARDIOVASCULAR: Denies chest pain or pressure. RESPIRATORY: No shortness of breath. GASTROINTESTINAL: See HPI for pertinent findings HEMATOLOGIC: Denies bleeding disorders. GENITOURINARY: Denies any blood in urine or increased urinary frequency. SKIN: Denies pruitis. Denies rash. PHYSICAL EXAM: VITAL SIGNS: Reviewed GENERAL: Well-developed in no acute distress. HEENT: No sclera icterus. Extraocular movements grossly intact. Moist buccal mucosa. Head is atraumatic, normocephalic. No nasal drainage. ABDOMEN: Soft. Nondistended. Suprapubic area tenderness with palpation NEUROLOGIC: Alert and oriented. Cranial nerves II through XII grossly intact. LABORATORY DATA: WBC is 5.2 hemoglobin 15.9 Sodium 143 creatinine 1.0 to lactic 1.3 LFTs normal lipase normal UA negative for infection IMAGING: computed tomography scan of the abdomen and pelvis shows distal appendix is dilated to 8 mm in maximum diameter without surrounding mesenteric inflammation. Can still be patient's baseline. Early appendicitis cannot be excluded. ASSESSMENT: 1. Chronic appendicitis PLAN: -Patient scheduled for laparoscopic appendectomy today with Dr. Stoddard -Keep patient nothing by mouth -Start IV Levaquin -Continue IV fluids -Continue antiemetics as needed Physician Icu Rn note has been reviewed by physician. Signing provider agrees with the documented findings, assessment, and plan of care. Past Medical History Past Medical History: GERD/Reflux, Hyperlipidemia, Osteoarthritis (OA), Prostate Disorder Additional Past Medical History / Comment(s): hx of H-PYLORI, herniated DISC, DIVERTICULOSIS, tinnitus glaucoma History of Any Multi-Drug Resistant Organisms: None Reported Past Surgical History: Cholecystectomy, Orthopedic Surgery Additional Past Surgical History / Comment(s): RECTAL FISSURE, RIGHT SHOULDER, removal of tumor from pituitary gland 04/19/19. cataract sx [facility]oses eye, colonoscopy Past Anesthesia/Blood Transfusion Reactions: No Reported Reaction Past Psychological History: Depression Smoking Status: Former smoker Past Alcohol Use History: None Reported Additional Past Alcohol Use History / Comment(s): smoked for a few years, teens to age 22 Past Drug Use History: None Reported - Past Family History Father History Unknown: Yes Mother History Unknown: Yes Medications and Allergies Home Medications Medication Instructions Recorded Confirmed Type ALPRAZolam [Xanax] 0.25 mg PO DAILY PRN 02/05/21 02/11/21 History Baclofen [Lioresal] 10 mg PO HS PRN 02/05/21 02/11/21 History Fenofibrate 160 mg PO DAILY 02/05/21 02/11/21 History Latanoprost/Pf [Latanoprost 0.005% 1 drop BOTH EYES HS 02/05/21 02/11/21 History Eye Drop] Omeprazole 20 mg PO BID 02/05/21 02/11/21 History Ondansetron HCl [Zofran] 4 mg PO Q8H PRN 02/05/21 02/11/21 History Tamsulosin [Flomax] 0.4 mg PO DAILY 02/05/21 02/11/21 History Betamethasone Dipropionate 1 applic TOPICAL DAILY PRN 02/11/21 02/11/21 History [Betamethasone Dipropionate 0.05%] C,E,Zinc,Copper 11/Jgmvn5x/Lut 1 cap PO DAILY 02/11/21 02/11/21 History [Ocuvite Adult 50 Plus Softgel] Calcium Magnesium Zinc 1 tab PO DAILY 02/11/21 02/11/21 History Cholecalciferol (Vitamin D3) 125 mcg PO DAILY 02/11/21 02/11/21 History [Vitamin D3 (5000 Iu)] Flaxseed Oil [[place]-3 Flaxseed Oil] 1,000 mg PO DAILY 02/11/21 02/11/21 History Glucos Sul 2Kcl/MSM/Chond/C/Mn 1 cap PO DAILY 02/11/21 02/11/21 History [Glucosamine Chondroitin Cap] Saw [place] 500 mg PO DAILY 02/11/21 02/11/21 History Super B Complex W/ Vit C 1 tab PO DAILY 02/11/21 02/11/21 History Allergies Allergy/AdvReac Type Severity Reaction Status Date / Time amoxicillin Allergy Unknown Verified 02/11/21 07:19 bacitracin Allergy Unknown Verified 02/11/21 07:19 bronopol Allergy Unknown Verified 02/11/21 07:19 bupropion HCl Allergy Unknown Verified 02/11/21 07:19 [From Wellbutrin] butalbital [From Fioricet] Allergy Unknown Verified 02/11/21 07:19 caffeine [From Fioricet] Allergy Unknown Verified 02/11/21 07:19 citalopram hydrobromide Allergy Unknown Verified 02/11/21 07:19 [From Celexa] epoxy resin Allergy Unknown Verified 02/11/21 07:19 gold sodium thiomalate Allergy Unknown Verified 02/11/21 07:19 hydrocodone bitartrate Allergy Unknown Verified 02/11/21 07:19 [From [place]] meloxicam [From Mobic] Allergy Unknown Verified 02/11/21 07:19 neomycin Allergy Unknown Verified 02/11/21 07:19 Penicillins Allergy Unknown Verified 02/11/21 07:19 promethazine HCl Allergy Unknown Verified 02/11/21 07:19 [From Phenergan] morphine AdvReac Nausea & Verified 02/11/21 07:19 Vomiting disperse red Allergy Unknown Uncoded 02/11/21 07:19 EUXYL 400 Allergy Unknown Uncoded 02/11/21 07:19 Surgical - Exam Vital Signs Temp Pulse Resp BP Pulse Ox 97.8 F 79 20 137/86 98 02/11/21 03:37 02/11/21 03:37 02/11/21 03:37 02/11/21 03:37 02/11/21 03:37 Results - Labs 02/11/21 04:26 02/11/21 04:26 Abnormal Lab Results - Last 24 Hours (Table) 02/11/21 Range/Units 04:26 Chloride 111 H (98-107) mmol/L Glucose 103 H (74-99) mg/dL Alkaline Phosphatase 33 L (38-126) U/L Diabetes panel 02/11/21 Range/Units 04:26 Sodium 143 (137-145) mmol/L Potassium 4.4 (3.5-5.1) mmol/L Chloride 111 H (98-107) mmol/L Carbon Dioxide 22 (22-30) mmol/L BUN 14 (9-20) mg/dL Creatinine 1.02 (0.66-1.25) mg/dL Glucose 103 H (74-99) mg/dL Calcium 9.6 (8.4-10.2) mg/dL AST 33 (17-59) U/L ALT 24 (4-49) U/L Alkaline Phosphatase 33 L (38-126) U/L Total Protein 7.5 (6.3-8.2) g/dL Albumin 4.5 (3.5-5.0) g/dL Calcium panel 02/11/21 Range/Units 04:26 Calcium 9.6 (8.4-10.2) mg/dL Albumin 4.5 (3.5-5.0) g/dL Pituitary panel 02/11/21 Range/Units 04:26 Sodium 143 (137-145) mmol/L Potassium 4.4 (3.5-5.1) mmol/L Chloride 111 H (98-107) mmol/L Carbon Dioxide 22 (22-30) mmol/L BUN 14 (9-20) mg/dL Creatinine 1.02 (0.66-1.25) mg/dL Glucose 103 H (74-99) mg/dL Calcium 9.6 (8.4-10.2) mg/dL Adrenal panel 02/11/21 Range/Units 04:26 Sodium 143 (137-145) mmol/L Potassium 4.4 (3.5-5.1) mmol/L Chloride 111 H (98-107) mmol/L Carbon Dioxide 22 (22-30) mmol/L BUN 14 (9-20) mg/dL Creatinine 1.02 (0.66-1.25) mg/dL Glucose 103 H (74-99) mg/dL Calcium 9.6 (8.4-10.2) mg/dL Total Bilirubin 0.6 (0.2-1.3) mg/dL AST 33 (17-59) U/L ALT 24 (4-49) U/L Alkaline Phosphatase 33 L (38-126) U/L Total Protein 7.5 (6.3-8.2) g/dL Albumin 4.5 (3.5-5.0) g/dL
[2021-02-11] MEDS: LEVOFLOXACIN 500MG-D5W PMX 500 MG in DEXTROSE/WATER 1 100ML.BAG IVPB SCH (09:55)
[2021-02-11] MEDS ORDERED: IV FLUID CONTINUATION 1,000 ML IV ONE (10:35)
[2021-02-11] MEDS ORDERED: HEPARIN SODIUM,PORCINE 5,000 UNIT/ML 1 ML VIAL SQ ONE (12:11)
[2021-02-11] MEDS ORDERED: HEPARIN SODIUM,PORCINE/PF 5,000 UNIT/0.5 ML SYRINGE SQ ONE (12:11)
[2021-02-11] MEDS ORDERED: WATER FOR INJECTION, STERILE 10 ML VIAL IV ONE (12:25)
[2021-02-11] MEDS ORDERED: ePHEDrine SULFATE/0.9% NACL/PF 50 MG/5 ML SYRINGE IV ONE (12:25)
[2021-02-11] MEDS ORDERED: KETOROLAC 15 MG/ML 1 ML VIAL ONE (12:25)
[2021-02-11] MEDS ORDERED: SUCCINYLCHOLINE CHLORIDE 100 MG/5 ML SYR IV ONE (12:25)
[2021-02-11] MEDS ORDERED: GLYCOPYRROLATE 0.2 MG/ML 2 ML VIAL ONE (12:25)
[2021-02-11] MEDS ORDERED: PROPOFOL 10 MG/ML 20 ML VIAL IV ONE (12:25)
[2021-02-11] MEDS ORDERED: NEOSTIGMINE 1 MG/ML 10 ML VIAL ONE (12:25)
[2021-02-11] MEDS ORDERED: fentaNYL (PF) 50 MCG/ML 2 ML AMP ONE (12:25)
[2021-02-11] MEDS ORDERED: LIDOCAINE 1% INJ 10MG/ML (20 ML MDV) ONE (12:25)
[2021-02-11] MEDS ORDERED: ROCURONIUM 10 MG/ML (5 ML VIAL) IV ONE (12:25)
[2021-02-11] MEDS ORDERED: BUPIVACAINE (PF) 0.25% 30 ML VIAL SQ ONE (13:05)
[2021-02-11] MEDS ORDERED: HYDROmorphone 0.5 MG/0.5 ML SYRINGE IVP PRN (13:11)
[2021-02-11] MEDS ORDERED: NALOXONE 0.4 MG/ML 1 ML VIAL IV PRN (13:11)
[2021-02-11] MEDS ORDERED: LACTATED RINGERS 1,000 ML IV ONE ×2 (13:11→13:20)
--- NOTE | 2021-02-11 13:11 | P.OP ---
Date of Procedure: 02/11/21 Preoperative Diagnosis: Chronic appendicitis Postoperative Diagnosis: Chronic appendicitis Adhesions Procedure(s) Performed: Laparoscopic appendectomy Laparoscopic lysis of adhesions Anesthesia: ALHAJI Surgeon: Trevin Stoddard Estimated Blood Loss (ml): 5 Pathology: other (Appendix) Condition: stable Disposition: PACU Description of Procedure: HThe patient's placed on the operating table in the supine position. The patient received general anesthesia. The abdomen was prepped and draped in the usual sterile fashion. The skin was anesthetized 1% local Xylocaine at the trocar sites. Using an 11 blade the skin was incised at the umbilicus. The umbilicus was grasped with a Bainbridge clamp and then a Veress needle was placed into the peritoneal cavity. Position of the Veress needle was confirmed with positive drop test. After adequate insufflation a 5 mm trocar was placed into the peritoneal cavity. The abdomen was further insufflated. And then the laparoscope was placed in the peritoneal cavity. Next a 5 mm trocar was placed in the midline suprapubic position. And then a 10 mm trocar was placed in the midline epigastric position. The patient was rotated with the right side up and in Trendelenburg. The appendix was visualized. The appendix appeared to be inflamed. The appendix was grasped and then using the Harmonic scissors the mesoappendix was divided. A PDS Endoloop was then placed around the base of the appendix. And then the appendix was divided using Harmonic scissors. The appendix was placed into an Endo Catch and brought out through the 10 mm trocar site. The abdomen was irrigated. There is no bleeding seen. The trochars withdrawn. The skin was closed interrupted 3-0 Monocryl suture. Dermabond dressing was applied. Patient was sent to recovery room in stable condition.
[2021-02-11] MEDS ORDERED: ALPRAZolam 0.25 MG TAB PO PRN (13:22)
[2021-02-11] MEDS ORDERED: BACLOFEN 10 MG TAB PO PRN (13:22)
[2021-02-11] MEDS ORDERED: ONDANSETRON 4 MG TAB PO PRN (13:22)
[2021-02-11] MEDS ORDERED: BETAMETHASONE DIPROPIONATE 0.05% OINTMENT 45 GM TUBE TOPICAL PRN (13:22)
[2021-02-11] MEDS ORDERED: ONDANSETRON 4 MG/2 ML VIAL IVP ONE (13:43)
[2021-02-11] MEDS ORDERED: HYDROmorphone 0.5 MG/0.5 ML SYRINGE IVP ONE ×2 (14:15→14:30)
--- NOTE | 2021-02-11 15:56 | CONS ---
CONSULTATION DATE OF SERVICE: 02/11/2021 REASON FOR CONSULTATION: Advice regarding hypertension, hyperlipidemia, other medical issues, requested by Dr. Stoddard. HISTORY OF PRESENT ILLNESS: This 75-year-old gentleman with a past medical history of GERD, hyperlipidemia, history of DJD, history of prostate disorder, history of cholecystectomy, being followed by Dr. Haile in the outpatient setting is admitted with abdominal pain to [facility]. A CT scan of the abdomen showed evidence of possible appendicitis. The patient admitted for further evaluation. There is no history of fever or rigors. No history of headache, loss of consciousness, seizures. PAST MEDICAL HISTORY: History of GERD, hyperlipidemia, history of DJD, history of prostate disorder, history of cholecystectomy. MEDICATIONS: Medications prior to admission, home medications are: [place]-3, Flaxseed, Vitamin C, E, Zinc, saw palmetto, cholecalciferol, calcium, magnesium, Flomax, Zofran, latanoprost, fenofibrate, betamethasone, Baclofen, Xanax. Doses are reviewed ALLERGIES: Allergies are multiple. Allergies are AMOXICILLIN, BACITRACIN, FIORICET, CELEXA, EPOXY RESIN, NORCO, MOBIC, NEOMYCIN, PENICILLIN, PHENERGAN, MORPHINE. FAMILY HISTORY: No history of heart disease or strokes in the family. SOCIAL HISTORY: Previous history of smoking. No history of alcohol intake. REVIEW OF SYSTEMS: ENT: No diminished hearing or diminished vision. CARDIOVASCULAR SYSTEM: No angina, palpitations. RESPIRATORY SYSTEM: No cough, no hemoptysis. GI: As mentioned earlier. : No dysuria. NERVOUS SYSTEM: No numbness, weakness. ALLERGY/IMMUNOLOGY: No asthma or hay fever. MUSCULOSKELETAL: As mentioned earlier. HEMATOLOGY/ONCOLOGY: No history of anemia. ENDOCRINE: No history of diabetes or hypothyroidism. CONSTITUTIONAL: As mentioned earlier. DERMATOLOGY: Negative. RHEUMATOLOGY: Negative. PSYCHIATRY: As mentioned. PHYSICAL EXAMINATION: The patient is alert and oriented x3. Pulse is 58, blood pressure 159/79, respirations 16, temperature 97 degrees, pulse ox 100% on room air. HEENT: Conjunctivae normal. NECK: No jugular venous distention. CARDIOVASCULAR: S1, S2 muffled. RESPIRATORY: Breath sounds diminished at the bases. No rhonchi, no crackles. ABDOMEN: Soft, mild diffuse discomfort on palpation. No guarding. No rigidity. No mass palpable. LEGS: No edema, no swelling. NERVOUS SYSTEM: Higher function mentioned earlier. Moves all 4 limbs. No focal motor or sensory deficits. LYMPHATICS: No lymphadenopathy of the neck, axillae or groin. SKIN: No ulcer, rash or bleeding. JOINTS: No active deforming arthropathy. LABS: Labs are at this time shows WBC 5.2, hemoglobin 15.9. Glucose 103. ASSESSMENT: 1. Abdominal pain possibly acute appendicitis. 2. Gastroesophageal reflux disease. 3. Hyperlipidemia. 4. History of degenerative joint disease. 5. History of prostate disorder. 6. History of Helicobacter pylori. 7. History of glaucoma. 8. History of cholecystectomy. 9. History of rectal fissure. 10.History of depression. 11.History of nicotine dependence. 12.FULL CODE. RECOMMENDATIONS AND DISCUSSION: This 75-year-old gentleman presented with multiple medical issues, at this time I would recommend to continue the current medications, continue symptomatic treatment. The patient is medically stable. I recommend resume the home medications. Incentive spirometry. DVT prophylaxis. Follow the patient closely. The patient will be asked to follow up with Dr. Haile closely after discharge. Thank you Dr. Stoddard for letting us participate in the care of this patient. MMODL / IJN: [id number] / MTDLucina
[2021-02-11] MEDS: DOCUSATE 100 MG CAP PO SCH (21:05)
[2021-02-11] MEDS: LATANOPROST 0.005% OPHTH DROPS 2.5 ML BTL BOTH EYES SCH (21:05)
[2021-02-11] MEDS: ACETAMINOPHEN TAB 325 MG TAB PO PRN (21:10)
[2021-02-12] MEDS: HYDROcodone/APAP 5-325MG 1 EACH TAB PO PRN ×3 (00:32→17:29)
[2021-02-12] MEDS: ENOXAPARIN 40 MG/0.4 ML SYRINGE SQ SCH (08:12)
[2021-02-12] MEDS: FENOFIBRATE 160 MG TAB PO SCH (08:13)
[2021-02-12] MEDS: PANTOPRAZOLE 40 MG TABLET PO SCH (08:13)
[2021-02-12] MEDS: LEVOFLOXACIN 500MG-D5W PMX 500 MG in DEXTROSE/WATER 1 100ML.BAG IVPB SCH (08:13)
[2021-02-12] MEDS: DOCUSATE 100 MG CAP PO SCH ×2 (08:13→21:13)
[2021-02-12] MEDS ORDERED: TAMSULOSIN 0.4 MG CAP.ER.24H PO SCH (09:00)
--- NOTE | 2021-02-12 13:35 | P.PN ---
Subjective Progress Note Date: 02/12/21 CHIEF COMPLAINT: Chronic appendicitis HISTORY OF PRESENT ILLNESS: Patient is status post laparoscopic appendectomy and lysis of adhesions for chronic appendicitis and adhesions. Postop day #1. Patient has been complaining of abdominal pain with nausea. Initially concerns for urinary retention. He feels that his bladder is spasming. He's had slow urine output. He has a known history of BPH is on Flomax. Bladder scan from last night showed no residual. Repeat bladder scan and his been ordered for today. Medicine service has increased Flomax to twice a day Afebrile PHYSICAL EXAM: VITAL SIGNS: Reviewed. GENERAL: Well-developed in no acute distress. HEENT: No sclera icterus. Extraocular movements grossly intact. Moist buccal mucosa. Head is atraumatic, normocephalic. ABDOMEN: Soft. Nondistended. Nontender. Incision sites clean dry and intact NEUROLOGIC: Alert and oriented. Cranial nerves II through XII grossly intact. ASSESSMENT: 1. Chronic appendicitis and adhesions status post laparoscopic appendectomy and lysis of adhesions PLAN: -Continue regular diet -Continue pain medication as needed -Encourage patient to ambulate -Encourage patient to use incentive spirometer -Anticipate discharge tomorrow Physician Process Control Specialist note has been reviewed by physician. Signing provider agrees with the documented findings, assessment, and plan of care. Objective - Vital Signs Vital signs: Vital Signs Temp 97.6 F 02/12/21 07:00 Pulse 51 L 02/12/21 07:00 Resp 15 02/12/21 07:00 BP 118/82 02/12/21 07:00 Pulse Ox 97 02/12/21 01:38 Intake & Output 02/11/21 02/12/21 02/12/21 18:59 06:59 18:59 Intake Total 800 Output Total 305 Balance 495 Weight 83.007 kg Intake: IV 800 Output: Urine 300 Estimated Blood Loss 5 Other: # Voids 2 1 - Labs CBC & Chem 7: 02/11/21 04:26 02/11/21 04:26
--- NOTE | 2021-02-12 17:25 | PN ---
PROGRESS NOTE DATE OF SERVICE: 02/12/2021 This 75-year-old gentleman who was admitted after abdominal pain and appendectomy is being closely monitored. No chest pain. No palpitations. No fever. The patient has some minimal urinary difficulty. PHYSICAL EXAMINATION: Alert and oriented x3. Pulse 51, blood pressure 118/82, respiration 15, temperature 97.6, pulse ox 97% on room air. HEENT: Conjunctivae normal. NECK: No jugular venous distention. CARDIOVASCULAR SYSTEM: S1, S2 muffled. RESPIRATORY SYSTEM: Breath sounds diminished at the bases. ABDOMEN: Soft. Mild diffuse tenderness. LEGS: No edema. No swelling. NERVOUS SYSTEM: No focal deficit. LABS: CBC ntd COVID-19 is negative. ASSESSMENT: 1. Abdominal pain; possible acute appendicitis. 2. Gastroesophageal reflux disease. 3. Hyperlipidemia. 4. Possible benign prostatic hypertrophy. 5. History of degenerative joint disease. 6. History of Helicobacter pylori. 7. History of glaucoma. 8. History of cholecystectomy. 9. History of rectal fissure. 10.History of depression. 11.History of nicotine dependence. 12.FULL CODE. RECOMMENDATIONS AND DISCUSSION: I recommend to continue current medications, continue with the monitoring, symptomatic treatment. DVT prophylaxis. Incentive spirometry. I would also increase the dose of Flomax. Continue to monitor. Further recommendations to follow. Closely follow with Surgery. MMGIORGIL / IJN: [id number] / MTDD
[2021-02-12] MEDS: TAMSULOSIN 0.4 MG CAP.ER.24H PO SCH (21:13)
[2021-02-12] MEDS: LATANOPROST 0.005% OPHTH DROPS 2.5 ML BTL BOTH EYES SCH (21:13)
[2021-02-13] MEDS: ACETAMINOPHEN TAB 325 MG TAB PO PRN (07:33)
[2021-02-13] MEDS: ENOXAPARIN 40 MG/0.4 ML SYRINGE SQ SCH (08:03)
[2021-02-13] MEDS: DOCUSATE 100 MG CAP PO SCH (08:03)
[2021-02-13] MEDS: FENOFIBRATE 160 MG TAB PO SCH (08:04)
[2021-02-13] MEDS: TAMSULOSIN 0.4 MG CAP.ER.24H PO SCH (08:04)
[2021-02-13] MEDS: PANTOPRAZOLE 40 MG TABLET PO SCH (08:04)
[2021-02-13] MEDS ORDERED: LEVOFLOXACIN 500 MG TAB PO SCH (09:00)
[2021-02-13 14:36] VITALS: BP 120/74; PULSE 60; RESP 16; TEMP 97.3
--- NOTE | 2021-02-13 15:08 | P.DS ---
Providers Date of admission: 02/11/21 06:58 Expected date of discharge: 02/13/21 Attending physician: Trevin Stoddard Consults: 02/11/21 12:28 Consult Physician Routine Consulting Provider: Andrew Malik Consult Reason/Comments: Medical management Do you want consulting provider notified?: Yes [facility] Course: Discharge diagnosis 1. Chronic appendicitis and adhesions status post laparoscopic appendectomy and lysis of adhesions Hospital course This is a 75-year-old male with a known history of GERD, hyperlipidemia, diverticulosis, BPH and a prior laparoscopic cholecystectomy. Patient comes into the emergency room due to increasing lower abdominal pain. Patient reports that he has been having abdominal pain for about 2 months. He reports that the pain as started in the right lower quadrant and radiates across the lower abdomen. Over the last few days the pain continued to worsen. He rated the pain as 7 out of 10. He had a computed tomography scan of the abdomen and pelvis shows distal appendix is dilated to 8 mm in maximum diameter without surrounding mesenteric inflammation. Can still be patient's baseline. Early appendicitis cannot be excluded. Patient is status post laparoscopic appendectomy and lysis of adhesions. Patient tolerated surgery well. His pain is controlled. He is tolerating a regular diet. He is passing gas. He is up and ambulating. He is afebrile. He is stable for discharge. Please refer to chart for any further details. Physician Tire Regrooving Machine Operator note has been reviewed by physician. Signing provider agrees with the documented findings, assessment, and plan of care. Patient Condition at Discharge: Stable Plan - Discharge Summary Discharge Rx Participant: Yes New Discharge Prescriptions: New Docusate [Colace] 100 mg PO BID #30 capsule HYDROcodone/APAP 5-325MG [[place] 5-325] 1 tab PO Q6HR PRN 3 Days #12 tab PRN Reason: Pain Continue Ondansetron HCl [Zofran] 4 mg PO Q8H PRN PRN Reason: Nausea And Vomiting Latanoprost/Pf [Latanoprost 0.005% Eye Drop] 1 drop BOTH EYES HS Fenofibrate 160 mg PO DAILY Omeprazole 20 mg PO BID Baclofen [Lioresal] 10 mg PO HS PRN PRN Reason: back Pain Super B Complex W/ Vit C 1 tab PO DAILY Saw [place] 500 mg PO DAILY Calcium Magnesium Zinc 1 tab PO DAILY ALPRAZolam [Xanax] 0.25 mg PO DAILY PRN PRN Reason: Anxiety Tamsulosin [Flomax] 0.4 mg PO DAILY Betamethasone Dipropionate [Betamethasone Dipropionate 0.05%] 1 applic TOPICAL DAILY PRN PRN Reason: Rash Glucos Sul 2Kcl/MSM/Chond/C/Mn [Glucosamine Chondroitin Cap] 1 cap PO DAILY C,E,Zinc,Copper 11/Egopa2f/Lut [Ocuvite Adult 50 Plus Softgel] 1 cap PO DAILY Cholecalciferol (Vitamin D3) [Vitamin D3 (5000 Iu)] 125 mcg PO DAILY Flaxseed Oil [[place]-3 Flaxseed Oil] 1,000 mg PO DAILY Discharge Medication List ALPRAZolam [Xanax] 0.25 mg PO DAILY PRN 02/05/21 [History] Baclofen [Lioresal] 10 mg PO HS PRN 02/05/21 [History] Fenofibrate 160 mg PO DAILY 02/05/21 [History] Latanoprost/Pf [Latanoprost 0.005% Eye Drop] 1 drop BOTH EYES HS 02/05/21 [History] Omeprazole 20 mg PO BID 02/05/21 [History] Ondansetron HCl [Zofran] 4 mg PO Q8H PRN 02/05/21 [History] Tamsulosin [Flomax] 0.4 mg PO DAILY 02/05/21 [History] Betamethasone Dipropionate [Betamethasone Dipropionate 0.05%] 1 applic TOPICAL DAILY PRN 02/11/21 [History] C,E,Zinc,Copper 11/Edldu1r/Lut [Ocuvite Adult 50 Plus Softgel] 1 cap PO DAILY 02/11/21 [History] Calcium Magnesium Zinc 1 tab PO DAILY 02/11/21 [History] Cholecalciferol (Vitamin D3) [Vitamin D3 (5000 Iu)] 125 mcg PO DAILY 02/11/21 [History] Flaxseed Oil [[place]-3 Flaxseed Oil] 1,000 mg PO DAILY 02/11/21 [History] Glucos Sul 2Kcl/MSM/Chond/C/Mn [Glucosamine Chondroitin Cap] 1 cap PO DAILY 02/11/21 [History] [place] 500 mg PO DAILY 02/11/21 [History] Super B Complex W/ Vit C 1 tab PO DAILY 02/11/21 [History] Docusate [Colace] 100 mg PO BID #30 capsule 02/13/21 [Rx] HYDROcodone/APAP 5-325MG [[place] 5-325] 1 tab PO Q6HR PRN 3 Days #12 tab 02/13/21 [Rx] Follow up Appointment(s)/Referral(s): Wilfredo Haile DO [Primary Care Provider] - 1-2 days Trevin Stoddard MD [STAFF PHYSICIAN] - 1 Week Activity/Diet/Wound Care/Special Instructions: No driving while taking [place] No lifting over 10 pounds You may shower. No soaking or tub baths for 2 weeks Very light activity until you are reevaluated at your follow up appointment with your surgeon Discharge Disposition: HOME SELF-CARE
[2021-02-13] MEDS ORDERED: NA PHOS,M-B/NA PHOS,DI-BA 133 ML ENEMA RECTAL ONE (16:07)
--- NOTE | 2021-02-13 18:58 | PN ---
PROGRESS NOTE DATE OF SERVICE: 02/13/2021 This 75-year-old gentleman who was admitted after appendectomy is complaining of generalized aches and pains. The patient is closely monitored. No chest pain. No palpitations. No fever. COVID-19 is negative. PHYSICAL EXAMINATION: Alert and oriented x3. Pulse 60, blood pressure is 120/74, respiratory rate 16, temperature 97.3, pulse ox 96% on room air. HEENT: Conjunctivae normal. NECK: No jugular venous distention. CARDIOVASCULAR SYSTEM: S1, S2 muffled. RESPIRATORY SYSTEM: Breath sounds diminished at the bases. ABDOMEN: Soft. Status post surgery. LEGS: No edema. No swelling. NERVOUS SYSTEM: No focal deficit. LABS: CBC within normal limits. ASSESSMENT: 1. Abdominal pain; possible acute appendicitis, status post laparoscopic appendectomy. 2. Gastroesophageal reflux disease. 3. Hyperlipidemia. 4. Possible benign prostatic hypertrophy. 5. History of degenerative joint disease. 6. History of Helicobacter pylori. 7. History of glaucoma. 8. History of cholecystectomy. 9. History of rectal fissure. 10.History of depression. 11.History of nicotine dependence. 12.FULL CODE. RECOMMENDATIONS AND DISCUSSION: I recommend to continue current medications, continue with the monitoring, symptomatic treatment. Otherwise at this time I would recommend influenza testing and repeat labs. Guarded prognosis. Closely follow with Surgery. Further recommendations to follow. MMODL / IJN: [id number] /
== END 2021-02-13 17:59 | disposition home or self-care (01) ==
LOC: EC 03:33 → 6NMEDSUR 06:58
PROVIDERS: ADMIT Surgery; ATTEND Surgery
DX: K36 Other appendicitis (principal); C18.1 Malignant neoplasm of appendix; K66.0 Peritoneal adhesions (postprocedural) (postinfection); N40.1 Benign prostatic hyperplasia with lower urinary tract symptoms; R34 Anuria and oliguria; E78.5 Hyperlipidemia, unspecified; K21.9 Gastro-esophageal reflux disease without esophagitis; M19.90 Unspecified osteoarthritis, unspecified site; H93.19 Tinnitus, unspecified ear; K57.90 Diverticulosis of intestine, part unspecified, without perforation or abscess without bleeding; F32.9 Major depressive disorder, single episode, unspecified; M51.37 Other intervertebral disc degeneration, lumbosacral region; M85.80 Other specified disorders of bone density and structure, unspecified site; I10 Essential (primary) hypertension; H40.9 Unspecified glaucoma; Z20.822 Contact with and (suspected) exposure to COVID-19; Z79.899 Other long term (current) drug therapy; Z88.0 Allergy status to penicillin; Z88.1 Allergy status to other antibiotic agents; Z88.5 Allergy status to narcotic agent; Z88.6 Allergy status to analgesic agent; Z88.8 Allergy status to other drugs, medicaments and biological substances; Z91.048 Other nonmedicinal substance allergy status; Z98.41 Cataract extraction status, right eye; Z90.49 Acquired absence of other specified parts of digestive tract; Z98.890 Other specified postprocedural states; Z87.891 Personal history of nicotine dependence; Z86.19 Personal history of other infectious and parasitic diseases; Z98.42 Cataract extraction status, left eye
CPT/HCPCS: 96361; 96372; 96374; 96375; 99285; 36415; 88304; 80053; 82150; 83605; 83690; 85025; 81003; 87502; 87635; 74177; 44970; G0378 ×3; J0500; J1644; J2710; J2765; J2405 ×2; J1956 ×2; J2001; J1650 ×2; J3010; J1885; J0330; J2704; C9113; J1170; Q9967

== ENCOUNTER → 2021-05-01 | Outpatient (CLI) | payer MEDICARE, BC ==
--- NOTE | 2021-05-01 13:22 | CT ---
EXAMINATION TYPE: CT abdomen pelvis w con DATE OF EXAM: 05/01/2021 COMPARISON: 02/11/2021 HISTORY: RLQ pain, pelvic and perineal pain CT DLP: 1166.70 mGycm CONTRAST: CT scan of the abdomen and pelvis is performed with Oral Contrast and with IV Contrast, patient injec antonio with 100 ml mL of Isovue 300. FINDINGS: LUNG BASES-: No visible nodule. No infiltrate. LIVER/GB: There is evidence of hepatic steatosis. The gallbladder surgically absent. No space occup carmine hepatic lesion. Biliary tree is of normal caliber. PANCREAS: No inflammation. No distinct mass. SPLEEN: No splenic enlargement. No lesion seen. ADRENALS: No nodule. No thickening. KIDNEYS/BLADDER: No hydronephrosis. No nephrolithiasis. Renal cystic changes redemonstrated. Urinar y bladder grossly unremarkable. BOWEL: Normal appendix. Normal bowel caliber. No inflammation. Scattered diverticulosis. GENITAL ORGANS: No gross abnormality. LYMPH NODES: No greater than 1cm abdominal or pelvic lymph nodes are appreciated. AORTA: No significant abnormality. OSSEOUS STRUCTURES: No significant abnormality is seen. OTHER: No significant additional abnormality is seen. IMPRESSION: 1. Sigmoid diverticulosis without diverticulitis. 2. Hepatic steatosis. 3. Renal cystic changes.
== END | disposition home or self-care (01) ==
LOC: RADCTMAIN 10:23
PROVIDERS: ATTEND Family Medicine
DX: Z48.815 Encounter for surgical aftercare following surgery on the digestive system (principal); K57.30 Diverticulosis of large intestine without perforation or abscess without bleeding; K76.0 Fatty (change of) liver, not elsewhere classified; R10.813 Right lower quadrant abdominal tenderness
CPT/HCPCS: 82565; 84520; 74177; 36415; Q9967

== ENCOUNTER → 2021-09-16 | Outpatient (CLI) | payer MEDICARE, BC ==
--- NOTE | 2021-09-16 12:27 | XR ---
EXAMINATION TYPE: XR cervical spine comp DATE OF EXAM: 09/16/2021 COMPARISON: None HISTORY: Cervicalgia TECHNIQUE: 5 view cervical spine FINDINGS: Odontoid tip is limited due to overlying occiput. Foraminal stenosis is present C3-4 and C5-6 C6-7 on the left. Mild diffuse foraminal narrowing is pre sent C3-4 through C6-7 on the right. The prevertebral space is normal. Posterior spinal lamellar line is intact. There is disc space narro wing C3-4 C5-6 C6-7. Some posterior endplate spurring is present C6-7. IMPRESSION: 1. Degenerative disc changes and foraminal narrowing discussed above.
== END | disposition home or self-care (01) ==
LOC: RADXRYALE 11:58
PROVIDERS: ATTEND Family Medicine
DX: M50.323 Other cervical disc degeneration at C6-C7 level (principal); M48.02 Spinal stenosis, cervical region
CPT/HCPCS: 72050

== ENCOUNTER → 2022-06-25 | Outpatient (CLI) | payer MEDICARE, BC ==
--- NOTE | 2022-06-25 18:54 | CT ---
EXAMINATION TYPE: CT facial bones wo con CT DLP: 3013.5 mGycm, Automated exposure control for dose reduction was used. DATE OF EXAM: 06/25/2022 6:00 PM COMPARISON: Same day CT brain. CT chest 10/29/2017. CLINICAL INDICATION:Male, 76 years old with history of R51.9 headache, G50.1, D35.2, J32.0; , Left si de maxillary pain/pressure. Hx of frontal brain tumor removed. No injury. TECHNIQUE: Multiple unenhanced axial CT images were obtained of the facial bones soft tissue and bone windows. Coronal, axial and sagittal reformatted images were also provided in soft tissue and bone windows and submitted for interpretation. FINDINGS: No evidence of significant paranasal sinus disease. Mild mucosal thickening in the frontal sinuses ethmoid air cells and maxillary sinuses and calyces that the sphenoid sinuses. Postsurgical c hanges to the ethmoid air cells. Bilateral aphakia. No organizing fluid collection mass. There is no evidence of fracture, subluxation, dislocation, or significant soft tissue swelling. The orbital contents are unremarkable.The temporal-mandibular joints appear symmetric. IMPRESSION: Mild paranasal sinus disease. No finding to correlate patient's symptomology.
--- NOTE | 2022-06-25 18:58 | CT ---
EXAMINATION TYPE: CT brain wo/w con CT DLP: 3013.5 mGycm, Automated exposure control for dose reduction was used. DATE OF EXAM: 06/25/2022 6:00 PM COMPARISON: 01/29/2019. CLINICAL INDICATION:Male, 76 years old with history of R51.9 headache, G50.1, D35.2, J32.0; , Left si de maxillary pain/pressure. Hx of frontal brain tumor removed. No injury. TECHNIQUE: Axial CT images of the brain were obtained with coronal and sagittal reformats created and reviewed. Contrast used:70cc mL of Isovue 300 with IV Contrast, Oral contrast used: none. FINDINGS: Extra-axial spaces: No abnormal extra-axial fluid collections. Ventricular system: Within normal limits Cerebral parenchyma: No acute intraparenchymal hemorrhage or mass effect. The ledesma-white junction is well differentiated. No abnormal enhancement is seen after the administration of intravenous contras t. Cerebellum: Unremarkable. Mass effect: No evidence of midline shift. Intracranial vasculature: unremarkable Soft tissues: Normal. Calvarium/osseous structures: No depressed skull fracture. Paranasal sinuses and mastoid air cells: Postsurgical changes paranasal sinuses mild scattered parana julien sinus disease. Visualized orbits: Orbital contents are intact. IMPRESSION: 1. No acute intracranial process. 2. No abnormal postcontrast enhancement.
== END | disposition home or self-care (01) ==
LOC: RADCTMAIN 16:06
PROVIDERS: ATTEND Family Medicine
DX: D35.2 Benign neoplasm of pituitary gland (principal); J34.9 Unspecified disorder of nose and nasal sinuses; G50.1 Atypical facial pain; R51.9 Headache, unspecified
CPT/HCPCS: 82565; 84520; 70486; 70470; 36415; Q9967

== ENCOUNTER → 2022-10-27 | Outpatient (CLI) | payer MEDICARE, BC ==
--- NOTE | 2022-10-27 12:31 | CT ---
EXAMINATION TYPE: CT abdomen pelvis w con CT DLP: 1485 mGycm, Automated exposure control for dose reduction was used. DATE OF EXAM: 10/27/2022 12:23 PM COMPARISON: CT abdomen pelvis most recent from 05/01/2021. CLINICAL INDICATION:Male, 77 years old with history of R10.32 LLQ pain; abd pain TECHNIQUE: Standard CT of the abdomen and pelvis following the administration of 70 cc of Isovue 30 0 IV contrast material and oral contrast. Coronal and sagittal reformats were performed. FINDINGS: LOWER CHEST: Unremarkable ABDOMEN LIVER: Diffusely hypoattenuating parenchyma. GALLBLADDER AND BILE DUCTS: The gallbladder is surgically absent. No biliary ductal dilatation. PANCREAS: Unremarkable. SPLEEN: Unremarkable. ADRENAL GLANDS: Unremarkable. KIDNEYS AND URETERS: No evidence of hydronephrosis or renal calculus. The kidneys enhance symmetrical ly. Stable bilateral renal cysts. PELVIS BLADDER: Incompletely distended but grossly unremarkable. REPRODUCTIVE: Unremarkable. ABDOMEN & PELVIS STOMACH AND BOWEL: Small hiatal hernia, duodenum is unremarkable. Distal colonic diverticulosis witho ut evidence for acute diverticulitis. Enteric contrast reaches the mid transverse colon. No focal wal l thickening or surrounding inflammatory changes. No evidence of bowel obstruction. PERITONEUM: No evidence of pneumoperitoneum or free fluid. VASCULATURE: Mild atherosclerotic calcifications are present throughout the abdominal aorta and its b ranches. No evidence of aortic aneurysm. MUSCULOSKELETAL: No acute osseous abnormalities. Mild disc degeneration changes are present throughou t the thoracolumbar spine. LYMPH NODES: No gross evidence for lymphadenopathy. SOFT TISSUE/ABDOMINAL WALL: Small fat filled umbilical hernia. IMPRESSION: 1. No acute abdominal/pelvic process. 2. Colonic diverticulosis without evidence for acute diverticulitis. 3. Hepatic steatosis.
== END | disposition home or self-care (01) ==
LOC: RADCTMAIN 10:18
PROVIDERS: ATTEND Family Medicine
DX: C18.1 Malignant neoplasm of appendix (principal); K76.0 Fatty (change of) liver, not elsewhere classified; K57.30 Diverticulosis of large intestine without perforation or abscess without bleeding; R10.32 Left lower quadrant pain; R11.0 Nausea; K58.2 Mixed irritable bowel syndrome
CPT/HCPCS: 82565; 84520; 74177; 36415; Q9967

== ENCOUNTER → 2023-02-11 | Outpatient (CLI) | payer MEDICARE, BC | END | disposition home or self-care (01) | LOC: LABWHC1 13:10 | PROVIDERS: ATTEND Urology | DX: R97.20 Elevated prostate specific antigen [PSA] (principal) | CPT/HCPCS: 36415; 84153 ==

== ENCOUNTER → 2023-03-17 | Outpatient (CLI) | payer MEDICARE, BC ==
--- NOTE | 2023-03-17 09:57 | XR ---
EXAMINATION TYPE: XR tibia fibula LT DATE OF EXAM: 03/17/2023 9:51 AM INDICATION: Patient age:Male; 77 years old; Reason for study: [id number] LT LOWER LEG PAIN; [facility]. COMPARISON: None TECHNIQUE: The left tibia/fibula was examined in AP and lateral projections. FINDINGS: No acute fracture or dislocation. No sclerotic or lytic lesion identified. No periosteal re action. Remote appearing injury to the lateral malleolus. No soft tissue edema. Suprapatellar spurrin g noted. Posterior calcaneal enthesophyte noted. No radiopaque foreign body. IMPRESSION: No evidence of acute fracture.
== END | disposition home or self-care (01) ==
LOC: RADXRYALE 09:35
PROVIDERS: ATTEND Family Medicine
DX: S86.112A Strain of other muscle(s) and tendon(s) of posterior muscle group at lower leg level, left leg, initial encounter (principal); M79.662 Pain in left lower leg

== ENCOUNTER → 2023-08-15 | Outpatient (CLI) | payer MEDICARE, BC ==
--- NOTE | 2023-08-15 11:17 | MR ---
EXAMINATION TYPE: MR Prostate wo/w con DATE OF EXAM: 08/15/2023 11:05 AM COMPARISON: 10/27/2022. CLINICAL INDICATION:Male, 78 years old with history of R97.20 elevated psa; Elevated PSA TECHNIQUE: Multi-planar, multi-sequence imaging of the pelvis is performed prior to and following the uncomplicated administration of bolus intravenous gadolinium. CONTRAST: 9ml Gadavist Interpretive Criteria: PI-RADS v2.1 SERUM PSA: 5.0 on 07/14/2023. SURGICAL PATHOLOGY: No data available. FINDINGS: Prostatic dimensions: 4.3 x 4.5 x 3.3 cm. "Bullet" Volume:41.79 (PSA density=0.12 ng/mL/mL) CENTRAL GLAND (Central and Transition Zones/CZ+TZ): Right mid gland r 12 x 10 mm area of high evaluate low ADC low T2 signal with arterial phase enhancem ent. (PI-RADS 4) PERIPHERAL ZONE (PZ): Bilateral linear, indistinct wedgelike areas of low ADC, and low T2 signal, No evidence of masslike a bnormality, or localized perfusional hypervascularity, to further suggest a focus of clinically signi ficant prostate cancer. (PI-RADS 2) SEMINAL VESICLES (SV): Symmetric and unremarkable. PERIPROSTATIC TISSUES: Unremarkable. LYMPH NODES: No enlarged pelvic lymph node. REMAINING PELVIS: Bladder wall is within normal limits given distention. No abnormal free or organized intrapelvic fluid collection. No pathologic bowel dilation or mural thickening. Colonic diverticula are present. Bilateral fat containing inguinal hernias. OSSEOUS STRUCTURES: No suspicious osseous abnormality. IMPRESSION: 1. PI-RADS 4 lesion right central gland mid gland measuring 12 x 10 mm. PI-RADS score: 4 2. Mild BPH, estimated gland volume 41.79 mL. 3. No suspicious osseous lesion. No lymphadenopathy. No evidence of prostate adenocarcinoma involving the periprostatic tissues.
== END | disposition home or self-care (01) ==
LOC: RADMRIMAIN 09:47
PROVIDERS: ATTEND Urology
DX: N40.0 Benign prostatic hyperplasia without lower urinary tract symptoms (principal); R97.20 Elevated prostate specific antigen [PSA]
CPT/HCPCS: 72197; A9585

== ENCOUNTER 2023-09-22 12:19 | Day surgery (SDC) | payer MEDICARE, BC ==
--- NOTE | 2023-09-22 11:37 | P.HPIHPCON ---
History of Present Illness H&P Date: 09/22/23 Chief Complaint: Elevated PSA This is a 78-year-old male with history of elevated PSA at , underwent prostate MRI that showed evidence of PIRAD 4 lesion along the right mid gland. Option of an MRI fusion biopsy was discussed with him. aware of the risk which includes but not limited to bleeding, infection, sepsis. He understood all the risk and agreed to proceed Consent for Procedure: I have explained the operation/procedure to the patient, including the risks, benefits, side effects, alternative therapies (including not receiving the proposed treatment or service), the likelihood of the patient achieving his/her goals, and potential recuperation problems for the procedure/sedation/analgesia, as well as any blood products, if indicated. I also explained to the patient the risks, benefits and side effects of the alternatives, as well as the risks related to not receiving the proposed procedure, care, treatment, or services. Past Medical History Past Medical History: Eye Disorder, GERD/Reflux, Hearing Disorder / Deafness, Hyperlipidemia, Prostate Disorder Additional Past Medical History / Comment(s): BPH, PSA numbers abnormal/MRI showed lesion, hx of H-PYLORI, lower back herniated DISC, DIVERTICULOSIS, tinnitus, bilateral macular degeneration. 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 cataract sx moses eye, colonoscopy Past Anesthesia/Blood Transfusion Reactions: No Reported Reaction Smoking Status: Former smoker - Past Family History Father History Unknown: Yes Mother History Unknown: Yes Family Medical History: Eye Disorder Additional Family Medical History / Comment(s): Macular degeneration Medications and Allergies Home Medications Medication Instructions Recorded Confirmed Type Fenofibrate 160 mg PO QAM 02/05/21 09/17/23 History Latanoprost/Pf [Latanoprost 0.005% 1 drop BOTH EYES HS 02/05/21 09/17/23 History Eye Drop] Tamsulosin [Flomax] 0.8 mg PO QAM 02/05/21 09/17/23 History C,E,Zinc,Copper 11/Sifqg6x/Lut 1 cap PO QAM 02/11/21 09/17/23 History [Ocuvite Adult 50 Plus Softgel] Cholecalciferol (Vitamin D3) 125 mcg PO QAM 02/11/21 09/17/23 History [Vitamin D3 (5000 Iu)] Glucos Sul 2Kcl/MSM/Chond/C/Mn 1 cap PO QAM 02/11/21 09/17/23 History [Glucosamine Chondroitin Cap] Super B Complex W/ Vit C 1 tab PO QAM 02/11/21 09/17/23 History Brimonidine Tartrate [Alphagan P 1 drop BOTH EYES BID 09/17/23 09/17/23 History 0.2% Ophth Soln] Famotidine 20 mg PO BID 09/17/23 09/17/23 History Multivitamins, Thera [Multivitamin 1 tab PO QAM 09/17/23 09/17/23 History (formulary)] Potassium Citrate 99 mg PO QAM 09/17/23 09/17/23 History Allergies Allergy/AdvReac Type Severity Reaction Status Date / Time amoxicillin Allergy Unknown Verified 02/11/21 07:19 promethazine Allergy Unknown Verified 09/17/23 15:39 morphine AdvReac Nausea & Verified 02/11/21 07:19 Vomiting Surgical - Exam - General no distress, no pain - Eyes normal ocular movement, no pale - ENT normal nares, normal mucosa - Respiratory normal expansion, normal respiratory effort - Abdomen Abdomen: soft, non tender Assessment and Plan Assessment: OR for MRI fusion prostate biopsy
[2023-09-22] MEDS: GENTAMICIN 120 MG in SODIUM CHLORIDE 0.9% 100 ML IVPB PRN ×4 (13:11→13:30)
[2023-09-22 13:14] VITALS: RESP 16; TEMP 97.8
[2023-09-22] MEDS ORDERED: PROPOFOL 10 MG/ML 20 ML VIAL IV ONE (15:50)
[2023-09-22] MEDS ORDERED: LIDOCAINE 1% INJ 10MG/ML (20 ML MDV) ONE (15:50)
--- NOTE | 2023-09-22 16:11 | P.OP ---
Date of Procedure: 09/22/23 Preoperative Diagnosis: Elevated PSA Postoperative Diagnosis: Same Procedure(s) Performed: MRI fusion biopsies Anesthesia: MAC Surgeon: Connor Subramanian Estimated Blood Loss (ml): 0 Pathology: other (Prostate biopsies) Condition: stable Disposition: PACU Indications for Procedure: This is a 78-year-old male with history of elevated PSA at , underwent prostate MRI that showed evidence of PIRAD 4 lesion along the right mid gland. Option of an MRI fusion biopsy was discussed with him. aware of the risk which includes but not limited to bleeding, infection, sepsis. He understood all the risk and agreed to proceed Description of Procedure: The patient was taken to the operating room and placed in the left lateral decubitus position. The Collective IP transrectal ultrasound probe was placed intrarectally. It was then placed within the stand of the [employer] MRI/TRUS Fusion for Prostate Biopsy system. The prostate was imaged in both the axial and sagittal planes, Using the Biopsy gun, 4 biopsies were obtained from the target lesion, there were was one lesions, . The remaining 12 biopsies of the peripheral zone were obtained utilizing a standard template. Once the procedure was completed, the ultrasound probe was removed. The patient tolerated the procedure well was taken to the recovery room stable condit
[2023-09-22 16:33] VITALS: BP 112/64; PULSE 60
== END 2023-09-22 16:59 | disposition other institution (70) ==
LOC: OR 12:19
PROVIDERS: ATTEND Urology
DX: C61 Malignant neoplasm of prostate (principal); N40.0 Benign prostatic hyperplasia without lower urinary tract symptoms; K21.9 Gastro-esophageal reflux disease without esophagitis; H91.90 Unspecified hearing loss, unspecified ear; E78.5 Hyperlipidemia, unspecified; Z88.0 Allergy status to penicillin; Z88.8 Allergy status to other drugs, medicaments and biological substances; Z79.899 Other long term (current) drug therapy; Z88.5 Allergy status to narcotic agent; Z90.49 Acquired absence of other specified parts of digestive tract; Z87.891 Personal history of nicotine dependence
CPT/HCPCS: 55700; 88305; J2001; J1580; J2704

== ENCOUNTER → 2023-10-29 | Outpatient (CLI) | payer MEDICARE, BC ==
--- NOTE | 2023-10-29 11:45 | XR ---
EXAMINATION TYPE: XR finger RT DATE OF EXAM: 10/29/2023 11:01 AM CLINICAL INDICATION:Male, 78 years old with history of [id number] RMF PAIN; [facility] COMPARISON: None TECHNIQUE: XR finger RT Frontal, lateral and oblique views were obtained. FINDINGS/IMPRESSION: 1. No evidence of fracture. 2. Soft tissue swelling of the third digit around the proximal interphalangeal joint. Calcifications are seen along the ulnar aspect of the proximal phalanx distally that represent chronic process. 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 3. Multifocal degeneration changes with osteophyte formation and joint space narrowing throughout th e remainder of infiltrates.
== END | disposition home or self-care (01) ==
LOC: RADXRYALE 10:51
PROVIDERS: ATTEND Physician Assistant
DX: M19.041 Primary osteoarthritis, right hand (principal); M79.89 Other specified soft tissue disorders; M25.841 Other specified joint disorders, right hand

== ENCOUNTER → 2024-03-02 | Outpatient (CLI) | payer MEDICARE, BC ==
[2024-03-02 10:26] LABS: African American GFR (CKD) 71 (>60 ml/min/1.73 sqM); Blood Urea Nitrogen 22 mg/dL (9-20); Non-African American GFR(CKD) 62 (>60 ml/min/1.73 sqM)
--- NOTE | 2024-03-02 12:45 | CT ---
EXAMINATION TYPE: CT abdomen pelvis w con DATE OF EXAM: 03/02/2024 COMPARISON: 10/27/2022 HISTORY: 78-year-old male K21.00, gastroesophageal reflux disease with esophagitis, history of IBS ab dominal pain, lower back pain, left sciatica pain TECHNIQUE: Contiguous axial scanning of the abdomen and pelvis following administration of 100 ml Iso stephie 300 IV contrast. Delayed images through the kidneys and coronal/sagittal reconstructions perform ed. CT DLP: 1441 mGycm Automated exposure control for dose reduction was used. FINDINGS: The heart is normal size without pericardial effusion. Some strandy atelectasis or scarring in the lower lungs without pleural effusion. Tiny hiatal hernia. No significant distal esophageal wall thickening seen by CT. The liver is borderline enlarged at 17.3 cm with diffusely diminished attenuation of the liver parenc hyma. Portal venous system is patent. No biliary ductal dilatation. Cholecystectomy clips. Adrenal glands, spleen, and pancreas within normal limits. Numerous bilateral renal cortical cysts, largest measuring 2.8 cm redemonstrated. Symmetric uptake an d excretion of contrast from the kidneys. Mild atherosclerotic calcifications infrarenal abdominal aorta without aneurysm. No dilated small bowel, free fluid, or free air. No mesenteric or retroperitoneal lymphadenopathy. Oral contrast progressed to the lower descending colon. There is diffuse sigmoid colonic diverticulos is. The appearance of mild wall thickening likely relates to nondistention. Pericolonic stranding lik brooks reflect prominent pericolonic vessels rather than mild inflammation. Further clinical correlation recommended. Bladder is collapsed. Numerous pelvic phleboliths. No abnormal fluid collection in the pelvis or pelv ic lymphadenopathy. Bones: Toma-nx-cvafvcjw degenerative change in both hips. Moderate degenerative change throughout the visualized lower thoracic and lumbar spine. IMPRESSION: 1. EXTENSIVE SIGMOID COLONIC DIVERTICULOSIS. THE APPEARANCE OF MILD WALL THICKENING LIKELY RELATES TO NONDISTENTION. PERICOLONIC STRANDING MAY REFLECT PROMINENT PERICOLONIC VESSELS RATHER THAN MILD INFL AMMATION. CORRELATE WITH SYMPTOMS TO EXCLUDE THE POSSIBILITY OF MILD ACUTE DIVERTICULITIS. 2. TINY HIATAL HERNIA. 3. BORDERLINE HEPATOMEGALY AT 17.3 CM WITH SEVERE HEPATIC STEATOSIS. APPROPRIATE CLINICAL MANAGEMENT IS ADVISED.
== END | disposition home or self-care (01) ==
LOC: RADCTMAIN 09:49
PROVIDERS: ATTEND Family Medicine
DX: C61 Malignant neoplasm of prostate (principal); C18.1 Malignant neoplasm of appendix; K57.30 Diverticulosis of large intestine without perforation or abscess without bleeding; K44.9 Diaphragmatic hernia without obstruction or gangrene; R16.0 Hepatomegaly, not elsewhere classified; K76.0 Fatty (change of) liver, not elsewhere classified; K21.00 Gastro-esophageal reflux disease with esophagitis, without bleeding
CPT/HCPCS: 82565; 84520; 74177; 36415; Q9967

== ENCOUNTER → 2024-08-19 | Outpatient (CLI) | payer MEDICARE, BC ==
--- NOTE | 2024-08-19 12:31 | MR ---
EXAMINATION TYPE: MR Prostate wo/w con DATE OF EXAM: 08/19/2024 9:49 AM COMPARISON: 10/27/2022. CLINICAL INDICATION:Male, 79 years old with history of C61 PROSTATE CANCER; Prostate cancer, elevated PSA. TECHNIQUE: Multi-planar, multi-sequence imaging of the pelvis is performed prior to and following the uncomplicated administration of bolus intravenous gadolinium. CONTRAST: 8 Gadobutrol Interpretive Criteria: PI-RADS v2.1 SERUM PSA: 07-22-24 = 12.4 -07-28 = 7.50 SURGICAL PATHOLOGY: No data available. FINDINGS: Prostatic dimensions: 4.6 x 4.9 x 3.3 cm. "Bullet" Volume:48.68 (PSA density=0.25 ng/mL/mL) CENTRAL GLAND (Central and Transition Zones/CZ+TZ): Right mid gland lesion now measuring 16 x 12 mm previously 12 x 10 mm area of high evaluate low ADC l ow T2 signal with arterial phase enhancement. (PI-RADS 5) PERIPHERAL ZONE (PZ): Bilateral linear, indistinct wedgelike areas of low ADC, and low T2 signal, No evidence of masslike a bnormality, or localized perfusional hypervascularity, to further suggest a focus of clinically signi ficant prostate cancer. (PI-RADS 2) SEMINAL VESICLES (SV): Symmetric and unremarkable. PERIPROSTATIC TISSUES: Unremarkable. LYMPH NODES: No enlarged pelvic lymph node. REMAINING PELVIS: Bladder wall is within normal limits given distention. No abnormal free or organized intrapelvic fluid collection. No pathologic bowel dilation or mural thickening. Colonic diverticula are present. Bilateral fat containing inguinal hernias. OSSEOUS STRUCTURES: No suspicious osseous abnormality. IMPRESSION: 1. Increasing size of PI-RADS 5 lesion right central gland mid gland measuring 16 x 12 mm. PI-RADS sc ore: 5. 2. Mild BPH, estimated gland volume 41.79 mL. 3. No suspicious osseous lesion. No lymphadenopathy. No evidence of prostate adenocarcinoma involving the periprostatic tissues. [facility], , 08/19/2024 12:28 PM
== END | disposition home or self-care (01) ==
LOC: RADMRIMAIN 08:00
PROVIDERS: ATTEND Urology
DX: C61 Malignant neoplasm of prostate (principal); K40.20 Bilateral inguinal hernia, without obstruction or gangrene, not specified as recurrent; K57.30 Diverticulosis of large intestine without perforation or abscess without bleeding
CPT/HCPCS: 72197; A9585

== ENCOUNTER 2024-09-20 12:45 | Day surgery (SDC) | payer MEDICARE, BC ==
--- NOTE | 2024-09-13 17:03 | P.HPIHPCON ---
History of Present Illness H&P Date: 09/13/24 Chief Complaint: Prostate cancer This is an 79-year-old male with history of [place] 6 prostate cancer on active surveillance, he was diagnosed back in August 2023. He has been having a rapid rising PSA. Underwent a repeat prostate MRI that showed evidence of progression of his previous lesion in terms of size and now its PI-RADS 5, previously PI-RADS 4 lesion. Lesion is located at the right central mid gland. Discussed with him given the rapid PSA rise, and the finding on MRI I do recommend proceeding with a repeat sampling of the prostate. Aware of the risk which includes but not limited to bleeding, infection. He understood all the risk and agreed to proceed Consent for Procedure: I have explained the operation/procedure to the patient, including the risks, benefits, side effects, alternative therapies (including not receiving the proposed treatment or service), the likelihood of the patient achieving his/her goals, and potential recuperation problems for the procedure/sedation/analgesia, as well as any blood products, if indicated. I also explained to the patient the risks, benefits and side effects of the alternatives, as well as the risks related to not receiving the proposed procedure, care, treatment, or services. 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 cataract sx moses eye, colonoscopy Past Anesthesia/Blood Transfusion Reactions: No Reported Reaction Smoking Status: Former smoker - Past Family History Father History Unknown: Yes Mother History Unknown: Yes Family Medical History: Eye Disorder Additional Family Medical History / Comment(s): Macular degeneration Medications and Allergies Home Medications Medication Instructions Recorded Confirmed Type Fenofibrate 160 mg PO QAM 02/05/21 09/17/23 History Latanoprost/Pf [Latanoprost 0.005% 1 drop BOTH EYES HS 02/05/21 09/22/23 History Eye Drop] Tamsulosin [Flomax] 0.8 mg PO QAM 02/05/21 09/22/23 History C,E,Zinc,Copper 11/Qrnhf3x/Lut 1 cap PO QAM 02/11/21 09/17/23 History [Ocuvite Adult 50 Plus Softgel] Cholecalciferol (Vitamin D3) 125 mcg PO QAM 02/11/21 09/17/23 History [Vitamin D3 (5000 Iu)] Glucos Sul 2Kcl/MSM/Chond/C/Mn 1 cap PO QAM 02/11/21 09/22/23 History [Glucosamine Chondroitin Cap] Super B Complex W/ Vit C 1 tab PO QAM 02/11/21 09/17/23 History Brimonidine Tartrate [Alphagan P 1 drop BOTH EYES BID 09/17/23 09/17/23 History 0.2% Ophth Soln] Famotidine 20 mg PO BID 09/17/23 09/22/23 History Multivitamins, Thera [Multivitamin 1 tab PO QAM 09/17/23 09/17/23 History (formulary)] Potassium Citrate 99 mg PO QAM 09/17/23 09/17/23 History Ciprofloxacin HCl [Cipro] 500 mg PO BID 09/22/23 09/22/23 History Allergies Allergy/AdvReac Type Severity Reaction Status Date / Time amoxicillin Allergy Rash/Hives Verified 09/22/23 12:48 promethazine Allergy Dyspnea Verified 09/22/23 12:48 morphine AdvReac Nausea & Verified 09/22/23 12:48 Vomiting Surgical - Exam - General no distress, no pain - Eyes normal ocular movement, no pale - ENT normal nares, normal mucosa - Abdomen Abdomen: soft, non tender Assessment and Plan Assessment: OR for MRI fusion biopsy of the prostate
[2024-09-20 14:12] VITALS: RESP 16; TEMP 97.4
[2024-09-20] MEDS: IV FLUID CONTINUATION 1,000 ML IV ONE (14:20)
[2024-09-20] MEDS ORDERED: fentaNYL (PF) 50 MCG/ML 2 ML AMP IVP PRN (14:39)
[2024-09-20] MEDS ORDERED: HYDROmorphone 0.5 MG/0.5 ML SYRINGE IVP PRN (14:39)
[2024-09-20] MEDS ORDERED: LACTATED RINGERS 1,000 ML IV SCH (14:39)
[2024-09-20] MEDS ORDERED: MIDAZOLAM 2 MG/2 ML VIAL IV PRN (14:39)
[2024-09-20] MEDS ORDERED: LIDOCAINE 1% (10MG/ML) FOR IV START INTRADERMA PRN (14:39)
[2024-09-20] MEDS: GENTAMICIN 40 MG/ML 2 ML VIAL IM PRN (14:40)
[2024-09-20] MEDS: ONDANSETRON 4 MG/2 ML VIAL IVP ONE (14:43)
[2024-09-20] MEDS: DEXAMETHASONE SOD PHOSPHATE 4 MG/ML 1 ML VIAL IV ONE (14:43)
[2024-09-20] MEDS ORDERED: PROPOFOL 10 MG/ML 20 ML VIAL IV ONE (16:26)
[2024-09-20 17:07] VITALS: BP 137/79; PULSE 61
--- NOTE | 2024-09-22 07:48 | P.OP ---
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 He has been having a rapid rising PSA. Underwent a repeat prostate MRI that showed evidence of progression of his previous lesion in terms of size and now its PI-RADS 5, previously PI-RADS 4 lesion. Lesion is located at the right central mid gland. Discussed with him given the rapid PSA rise, and the finding on MRI I do recommend proceeding with a repeat sampling of the prostate. Aware of the risk which includes but not limited to bleeding, infection. He understood all the risk and agreed to proceed Description of Procedure: The patient was taken to the operating room and placed in the left lateral decubitus position. The Evolita transrectal ultrasound probe was placed intrarectally. It was then placed within the stand of the Outline MRI/TRUS Fusion for Prostate Biopsy system. The prostate was imaged in both the axial and sagittal planes. Using the Biopsy gun, 3 biopsies were obtained from the target lesion, there were was one lesions, . The remaining 12 biopsies of the peripheral zone were obtained utilizing a standard template. Once the procedure was completed, the ultrasound probe was removed. The patient tolerated the procedure well was taken to the recovery room stable condition
== END 2024-09-20 17:38 | disposition home or self-care (01) ==
LOC: OR 12:45
PROVIDERS: ATTEND Urology
DX: C61 Malignant neoplasm of prostate (principal); N41.0 Acute prostatitis; K21.9 Gastro-esophageal reflux disease without esophagitis; K76.0 Fatty (change of) liver, not elsewhere classified; E78.5 Hyperlipidemia, unspecified; G47.33 Obstructive sleep apnea (adult) (pediatric); M19.90 Unspecified osteoarthritis, unspecified site; Z90.49 Acquired absence of other specified parts of digestive tract; Z87.891 Personal history of nicotine dependence; Z88.5 Allergy status to narcotic agent; Z88.0 Allergy status to penicillin; Z89.231 Acquired absence of right shoulder; Z79.899 Other long term (current) drug therapy
CPT/HCPCS: 88344; 88305; 55700; J1580; J1100; J2405; J2704

== ENCOUNTER 2024-09-20 23:58 | Emergency (ER) | payer MEDICARE, BC ==
[2024-09-21 00:19] VITALS: RESP 16; TEMP 98.8
[2024-09-21 00:53] LABS: Basophils % (A) 0 %; Eosinophils # (A) 0.1 k/uL (0-0.7); Eosinophils % (A) 1 %; HCT 43.1 % (39.0-53.0); HGB 14.6 gm/dL (13.0-17.5); Lymphocytes # (A) 0.5 k/uL (1.0-4.8); Lymphocytes % (A) 8 %; MCH 30.4 pg (25.0-35.0); MCHC 33.9 g/dL (31.0-37.0); MCV 89.7 fL (80.0-100.0); Mean Platelet Volume 7.8; Monocytes # (A) 0.2 k/uL (0-1.0); Monocytes % (A) 4 %; Neutrophils # (A) 5.3 k/uL (1.3-7.7); Neutrophils % (A) 87 %; Platelet Count 288 k/uL (150-450); RBC 4.81 m/uL (4.30-5.90); RDW 12.3 % (11.5-15.5); WBC 6.1 k/uL (3.8-10.6)
[2024-09-21] MEDS: KETOROLAC 15 MG/ML 1 ML VIAL IVP STA (01:12)
[2024-09-21] MEDS: ONDANSETRON 4 MG/2 ML VIAL IVP STA (01:12)
[2024-09-21] MEDS: PANTOPRAZOLE 40 MG/10 ML VIAL IVP STA (01:12)
[2024-09-21] MEDS: SODIUM CHLORIDE 0.9% 1,000 ML IV STA ×2 (01:13→02:46)
[2024-09-21 01:17] LABS: ALT 22 U/L (4-49); AST 33 U/L (17-59); African American GFR (CKD) 79 (>60 ml/min/1.73 sqM); Albumin 4.3 g/dL (3.5-5.0); Alkaline Phosphatase 33 U/L (38-126); Amylase 57 U/L (30-110); Anion Gap 10 mmol/L; Blood Urea Nitrogen 19 mg/dL (9-20); Calcium 9.6 mg/dL (8.4-10.2); Carbon Dioxide 19 mmol/L (22-30); Chloride 111 mmol/L (98-107); Glucose 147 mg/dL (74-99); Lipase 191 U/L (23-300); Non-African American GFR(CKD) 69 (>60 ml/min/1.73 sqM); Sodium 140 mmol/L (137-145); Total Bilirubin 0.5 mg/dL (0.2-1.3); Total Protein 7.4 g/dL (6.3-8.2)
[2024-09-21 01:31] LABS: INR 1.1 (<1.2); Partial Thromboplastin Time 24.2 sec (22.0-30.0); Prothrombin Time 12.2 sec (10.0-12.5)
--- NOTE | 2024-09-21 02:17 | ED ---
General Adult HPI - General Chief complaint: Urogenital Stated complaint: Urogenital Time Seen by Provider: 09/21/24 00:15 Source: patient, EMS, RN notes reviewed, old records reviewed Mode of arrival: EMS Limitations: no limitations - History of Present Illness Initial comments: Patient is an 79-year-old male who presents emergency department with urogenital complaints. Patient has a history of enlarged prostate, GERD, hyperlipidemia. Had a prostate biopsy transrectally by Dr. Subramanian earlier today. States he is having some suprapubic abdominal pressure sensation. States he is still voiding but feels like he still has to go even after he voids. Denies any strong odor or bleeding in his urine. Denies any new nausea or vomiting but states he has chronic nausea and vomiting and epigastric pain. Has a history of abdominal surgeries in the past. Denies any constipation or diarrhea. Has no other acute complaints at this time. Presents for further evaluation.Patient's symptoms are chronic. However they are worse today when compared to baseline. - Related Data Home Medications Medication Instructions Recorded Confirmed Fenofibrate 160 mg PO QAM 02/05/21 09/20/24 Latanoprost/Pf [Latanoprost 0.005% 1 drop BOTH EYES HS 02/05/21 09/20/24 Eye Drop] Tamsulosin [Flomax] 0.8 mg PO QAM 02/05/21 09/20/24 C,E,Zinc,Copper 11/Pupwc0g/Lut 1 cap PO QAM 02/11/21 09/16/24 [Ocuvite Adult 50 Plus Softgel] Cholecalciferol (Vitamin D3) 125 mcg PO QAM 02/11/21 09/16/24 [Vitamin D3 (5000 Iu)] Super B Complex W/ Vit C 1 tab PO QAM 02/11/21 09/16/24 Brimonidine Tartrate [Alphagan P 1 drop BOTH EYES BID 09/17/23 09/20/24 0.2% Ophth Soln] Famotidine 20 mg PO DAILY PRN 09/17/23 09/20/24 Multivitamins, Thera [Multivitamin 1 tab PO QAM 09/17/23 09/16/24 (formulary)] Potassium Citrate 99 mg PO QAM 09/17/23 09/16/24 Ciprofloxacin HCl [Cipro] 500 mg PO DIRECTED 09/22/23 09/20/24 Cholestyramine (with Sugar) 2 gm PO DAILY 09/16/24 09/20/24 [Cholestyramine Packet] Allergies Allergy/AdvReac Type Severity Reaction Status Date / Time amoxicillin Allergy Rash/Hives Verified 09/21/24 00:15 promethazine Allergy Dyspnea Verified 09/21/24 00:15 morphine AdvReac Nausea & Verified 09/21/24 00:15 Vomiting Review of Systems ROS Statement: Those systems with pertinent positive or pertinent negative responses have been documented in the HPI. Review of Systems: CONST: Denies fever EYES: Denies blurry vision ENT: Denies nasal congestion C/V: Denies Chest pain RESP: Denies shortness of breath GI: Endorses abdominal pain : Endorses increased sensation to urinate SKIN: Denies rash. MSK: Denies joint pain. NEURO: Denies headache ROS Other: All systems not noted in ROS Statement are negative. 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 cataract sx [facility], colonoscopy Past Anesthesia/Blood Transfusion Reactions: No Reported Reaction Past Psychological History: Depression Smoking Status: Former smoker Past Alcohol Use History: None Reported Past Drug Use History: None Reported - Past Family History Father History Unknown: Yes Mother History Unknown: Yes Family Medical History: Eye Disorder Additional Family Medical History / Comment(s): Macular degeneration General Exam - General Exam Comments Initial Comments: General: Appears anxious HEAD: Normal with no signs of head trauma. EYES: EOMI ENT: Hearing grossly intact, normal oropharynx. RESPIRATORY: Clear breath sounds bilaterally. No wheezes, rales, or rhonchi. C/V: Regular rate and rhythm. S1 and S2 auscultated, no edema, peripheral pulses 2+ and intact throughout ABD: Abdomen soft, nondistended. Tender to palpation in the suprapubic region. No guarding or rebound tenderness. No peritoneal signs. EXT: Normal range of motion, no obvious deformity SKIN: No rashes or lesions observed on exposed skin. NEURO: Alert and oriented x 4 Limitations: no limitations Course Vital Signs 09/21/24 09/21/24 00:15 03:12 Temperature 98.8 F Pulse Rate 91 72 Respiratory 16 16 Rate Blood Pressure 123/81 144/82 O2 Sat by Pulse 97 98 Oximetry Medical Decision Making - Medical Decision Making Was pt. sent in by a medical professional or institution (, [facility], [employer], urgent care, hospital, or jail...) When possible be specific @ -No Did you speak to anyone other than the patient for history (EMS, parent, family, police, friend...)? What history was obtained from this source @ -No Did you review nursing and triage notes (agree or disagree)? Why? @ -I reviewed and agree with nursing and triage notes Were old charts reviewed (outside hosp., previous admission, EMS record, old EKG, old radiological studies, urgent care reports/EKG's, jail records)? Report findings @ -No old charts were reviewed Differential Diagnosis (chest pain, altered mental status, abdominal pain women, abdominal pain men, vaginal bleeding, weakness, fever, dyspnea, syncope, headache, dizziness, GI bleed, back pain, seizure, CVA, palpatations, mental health, musculoskeletal)? @ -Postop complication, UTI, dysuria, hematuria, urinary obstruction. This list is not inclusive. EKG interpreted by me (3pts min.). @ -As above X-rays interpreted by me (1pt min.). @ -None done CT interpreted by me (1pt min.). @ -CT abdomen pelvis reveals no obvious acute process. U/S interpreted by me (1pt. min.). @ -Ultrasound of the renals and bladder revealed no obvious acute process. What testing was considered but not performed or refused? (CT, X-rays, U/S, labs)? Why? @ -None What meds were considered but not given or refused? Why? @ -None Did you discuss the management of the patient with other professionals (professionals i.e. , [facility], [employer], lab, RT, psych nurse, social services counselor, patch press operator, teacher, special forces officer, case liner)? Give summary @ -No Was smoking cessation discussed for >3mins.? @ -No Was critical care preformed (if so, how long)? @ -No Were there social determinants of health that impacted care today? How? (Homelessness, low income, unemployed, alcoholism, drug addiction, transportation, low edu. Level, literacy, decrease access to med. care, assisted, rehab)? @ -No Was there de-escalation of care discussed even if they declined (Discuss DNR or withdrawal of care, Hospice)? DNR status @ -No What co-morbidities impacted this encounter? (DM, HTN, Smoking, COPD, CAD, Cancer, CVA, ARF, Chemo, Hep., AIDS, mental health diagnosis, sleep apnea, morbid obesity)? @ -None Was patient admitted / discharged? Hospital course, mention meds given and route, prescriptions, significant lab abnormalities, going to OR and other pertinent info. @ -Based on patient's presentation and physical exam, presents with primarily lower abdominal pain and urinary complaints following prostate biopsy performed transrectally by Dr. Rogers earlier today. Also complaining of some chronic GERD like symptoms. Patient will be administered IV fluids, Zofran, Toradol, Protonix as well as a second liter of fluids. We will obtain cardiac labs and EKG in addition to ultrasound of the kidneys and bladder is not CT. Patient was in agreement this plan. Vitals are within acceptable limits. EKG shows no signs of acute ischemia. Laboratory studies remarkable for mild lactic acidosis of 2.7 which could be secondary to dehydration. Remainder the laboratory studies are unremarkable.Patient's laboratory studies are all within acceptable limits except for mild dehydration with lactic acid of 2.7. Urinalysis shows RBCs but no evidence of infection. Troponin undetectable. Remainder the workup unremarkable. Imaging all negative for any obvious acute process. On reevaluation, I discussed results with the patient. At this time he did tell me that most of the symptoms are chronic with slight worsening last night. Chronic being months to years. I did discuss that as it is this chronic, I do not believe that patient requires admission to the hospital at this time. Recommend follow-up with his urologist as well as print machine operator. Patient was in agreement this plan. Strict return precautions discussed. I instructed the patient to follow up with their PCP in the next 1-3 days. I explained that the patient should return to the emergency department if they experience any worsening symptoms. Strict return precautions were discussed with the patient. The patient expressed understanding of these instructions. I answered all questions that the patient had. The patient was discharged home in good condition with their prescriptions and follow up information. Undiagnosed new problem with uncertain prognosis? @ -No Drug Therapy requiring intensive monitoring for toxicity (Heparin, Nitro, Insulin, Cardizem)? @ -No Were any procedures done? @ -No Diagnosis/symptom? @ -Dysuria, GERD Acute, or Chronic, or Acute on Chronic? @ -Chronic Uncomplicated (without systemic symptoms) or Complicated (systemic symptoms)? @ -Uncomplicated Side effects of treatment? @ -None Exacerbation, Progression, or Severe Exacerbation] @ -No Poses a threat to life or bodily function? @ -Unlikely - Lab Data Result diagrams: 09/21/24 00:40 09/21/24 00:40 Lab Results 09/21/24 09/21/24 09/21/24 Range/Units 00:40 00:40 00:40 WBC 6.1 (3.8-10.6) k/uL RBC 4.81 (4.30-5.90) m/uL Hgb 14.6 (13.0-17.5) gm/dL Hct 43.1 (39.0-53.0) % MCV 89.7 (80.0-100.0) fL MCH 30.4 (25.0-35.0) pg MCHC 33.9 (31.0-37.0) g/dL RDW 12.3 (11.5-15.5) % Plt Count 288 (150-450) k/uL MPV 7.8 Neutrophils % 87 % Lymphocytes % 8 % Monocytes % 4 % Eosinophils % 1 % Basophils % 0 % Neutrophils # 5.3 (1.3-7.7) k/uL Lymphocytes # 0.5 L (1.0-4.8) k/uL Monocytes # 0.2 (0-1.0) k/uL Eosinophils # 0.1 (0-0.7) k/uL Basophils # 0.0 (0-0.2) k/uL PT 12.2 (10.0-12.5) sec INR 1.1 (<1.2) APTT 24.2 (22.0-30.0) sec Sodium 140 (137-145) mmol/L Potassium 4.0 (3.5-5.1) mmol/L Chloride 111 H (98-107) mmol/L Carbon Dioxide 19 L (22-30) mmol/L Anion Gap 10 mmol/L BUN 19 (9-20) mg/dL Creatinine 1.03 (0.66-1.25) mg/dL Est GFR (CKD-EPI)AfAm 79 (>60 ml/min/1.73 sqM) Est GFR (CKD-EPI)NonAf 69 (>60 ml/min/1.73 sqM) Glucose 147 H (74-99) mg/dL Lactic Ac Sepsis Rflx Plasma Lactic Acid Rigoberto (0.7-2.0) mmol/L Calcium 9.6 (8.4-10.2) mg/dL Total Bilirubin 0.5 (0.2-1.3) mg/dL AST 33 (17-59) U/L ALT 22 (4-49) U/L Alkaline Phosphatase 33 L (38-126) U/L Troponin I (0.000-0.034) ng/mL Total Protein 7.4 (6.3-8.2) g/dL Albumin 4.3 (3.5-5.0) g/dL Amylase 57 (30-110) U/L Lipase 191 (23-300) U/L Urine Color Urine Appearance (Clear) Urine pH (5.0-8.0) Ur Specific Garrett (1.001-1.035) Urine Protein (Negative) Urine Glucose (UA) (Negative) Urine Ketones (Negative) Urine Blood (Negative) Urine Nitrite (Negative) Urine Bilirubin (Negative) Urine Urobilinogen (<2.0) mg/dL Ur Leukocyte Esterase (Negative) Urine RBC (0-5) /hpf Urine WBC (0-5) /hpf Hyaline Casts (0-2) /lpf Urine Mucus (None) /hpf 09/21/24 09/21/24 09/21/24 Range/Units 00:40 01:15 01:43 WBC (3.8-10.6) k/uL RBC (4.30-5.90) m/uL Hgb (13.0-17.5) gm/dL Hct (39.0-53.0) % MCV (80.0-100.0) fL MCH (25.0-35.0) pg MCHC (31.0-37.0) g/dL RDW (11.5-15.5) % Plt Count (150-450) k/uL MPV Neutrophils % % Lymphocytes % % Monocytes % % Eosinophils % % Basophils % % Neutrophils # (1.3-7.7) k/uL Lymphocytes # (1.0-4.8) k/uL Monocytes # (0-1.0) k/uL Eosinophils # (0-0.7) k/uL Basophils # (0-0.2) k/uL PT (10.0-12.5) sec INR (<1.2) APTT (22.0-30.0) sec Sodium (137-145) mmol/L Potassium (3.5-5.1) mmol/L Chloride (98-107) mmol/L Carbon Dioxide (22-30) mmol/L Anion Gap mmol/L BUN (9-20) mg/dL Creatinine (0.66-1.25) mg/dL Est GFR (CKD-EPI)AfAm (>60 ml/min/1.73 sqM) Est GFR (CKD-EPI)NonAf (>60 ml/min/1.73 sqM) Glucose (74-99) mg/dL Lactic Ac Sepsis Rflx Plasma Lactic Acid Rigoberto 2.7 H* (0.7-2.0) mmol/L Calcium (8.4-10.2) mg/dL Total Bilirubin (0.2-1.3) mg/dL AST (17-59) U/L ALT (4-49) U/L Alkaline Phosphatase (38-126) U/L Troponin I <0.012 (0.000-0.034) ng/mL Total Protein (6.3-8.2) g/dL Albumin (3.5-5.0) g/dL Amylase (30-110) U/L Lipase (23-300) U/L Urine Color Colorless Urine Appearance Clear (Clear) Urine pH 6.5 (5.0-8.0) Ur Specific Garrett 1.015 (1.001-1.035) Urine Protein Negative (Negative) Urine Glucose (UA) Negative (Negative) Urine Ketones Negative (Negative) Urine Blood Small H (Negative) Urine Nitrite Negative (Negative) Urine Bilirubin Negative (Negative) Urine Urobilinogen <2.0 (<2.0) mg/dL Ur Leukocyte Esterase Negative (Negative) Urine RBC 31 H (0-5) /hpf Urine WBC <1 (0-5) /hpf Hyaline Casts 4 H (0-2) /lpf Urine Mucus Rare H (None) /hpf 09/21/24 Range/Units 02:07 WBC (3.8-10.6) k/uL RBC (4.30-5.90) m/uL Hgb (13.0-17.5) gm/dL Hct (39.0-53.0) % MCV (80.0-100.0) fL MCH (25.0-35.0) pg MCHC (31.0-37.0) g/dL RDW (11.5-15.5) % Plt Count (150-450) k/uL MPV Neutrophils % % Lymphocytes % % Monocytes % % Eosinophils % % Basophils % % Neutrophils # (1.3-7.7) k/uL Lymphocytes # (1.0-4.8) k/uL Monocytes # (0-1.0) k/uL Eosinophils # (0-0.7) k/uL Basophils # (0-0.2) k/uL PT (10.0-12.5) sec INR (<1.2) APTT (22.0-30.0) sec Sodium (137-145) mmol/L Potassium (3.5-5.1) mmol/L Chloride (98-107) mmol/L Carbon Dioxide (22-30) mmol/L Anion Gap mmol/L BUN (9-20) mg/dL Creatinine (0.66-1.25) mg/dL Est GFR (CKD-EPI)AfAm (>60 ml/min/1.73 sqM) Est GFR (CKD-EPI)NonAf (>60 ml/min/1.73 sqM) Glucose (74-99) mg/dL Lactic Ac Sepsis Rflx Y Plasma Lactic Acid Rigoberto (0.7-2.0) mmol/L Calcium (8.4-10.2) mg/dL Total Bilirubin (0.2-1.3) mg/dL AST (17-59) U/L ALT (4-49) U/L Alkaline Phosphatase (38-126) U/L Troponin I (0.000-0.034) ng/mL Total Protein (6.3-8.2) g/dL Albumin (3.5-5.0) g/dL Amylase (30-110) U/L Lipase (23-300) U/L Urine Color Urine Appearance (Clear) Urine pH (5.0-8.0) Ur Specific Garrett (1.001-1.035) Urine Protein (Negative) Urine Glucose (UA) (Negative) Urine Ketones (Negative) Urine Blood (Negative) Urine Nitrite (Negative) Urine Bilirubin (Negative) Urine Urobilinogen (<2.0) mg/dL Ur Leukocyte Esterase (Negative) Urine RBC (0-5) /hpf Urine WBC (0-5) /hpf Hyaline Casts (0-2) /lpf Urine Mucus (None) /hpf - EKG Data -: EKG Interpreted by Me EKG Comments: 12-lead Electrocardiogram Interpretation Note EKG was reviewed and interpreted by myself. 12-lead ECG performed at 0045 is int erpreted by me as revealing normal sinus rhythm at a rate of 67 beats per minute. Left axis deviation. ID interval is 237 ms, QRS duration is 113 ms, QTc is 424 ms. Patient has first-degree AV block.. There were no ST or T wave abnormalities to suggest myocardial ischemia or injury. R wave progression across the precordium was delayed. By my interpretation this EKG is non- diagnostic for acute ischemia. Disposition Clinical Impression: Dysuria, GERD (gastroesophageal reflux disease) Disposition: HOME SELF-CARE Condition: Good Instructions (If sedation given, give patient instructions): GERD (Gastroesophageal Reflux Disease) (ED) Additional Instructions: Follow-up with gastroenterology Dr. Koch for possible scope and endoscopy concerning her chronic nausea and vomiting and epigastric discomfort. Follow-up with Dr. Subramanian urologist for your chronic dysuria. Return if any worsening symptoms. Follow-up in the next 1 to 3 days if possible. Is patient prescribed a controlled substance at d/c from ED?: No Referrals: Wilfredo Haile DO [Primary Care Provider] - 1-2 days Radha Koch MD [STAFF PHYSICIAN] - 1-2 days Time of Disposition: 04:33
[2024-09-21 03:13] VITALS: BP 144/82; PULSE 72
[2024-09-21 03:43] LABS: Appearance,Urine Clear (Clear); Bilirubin,Urine Negative (Negative); Blood,Urine Small (Negative); Color,Urine Colorless; Glucose,Urine (UA) Negative (Negative); Hyaline Casts,Urine 4 /lpf (0-2); Ketones,Urine Negative (Negative); Leukocyte Esterase,Urine Negative (Negative); Mucus,Urine Rare /hpf; Nitrite,Urine Negative (Negative); PH, Urine 6.5 (5.0-8.0); Protein,Urine Negative (Negative); RBC,Urine 31 /hpf (0-5); Specific Gravity,Urine 1.015 (1.001-1.035); Urobilinogen,Urine <2.0 mg/dL (<2.0); WBC,Urine <1 /hpf (0-5)
--- NOTE | 2024-09-21 04:01 | CT ---
EXAM: CT Abdomen and Pelvis With Intravenous Contrast CLINICAL HISTORY: ITS.REASON CT Reason: recent prostate biopsy TECHNIQUE: Axial computed tomography images of the abdomen and pelvis with intravenous contrast. CTDI is 20.6 mGy and DLP is 1179.9 mGy-cm. This CT exam was performed using one or more of the following dose reduction techniques: automated exposure control, adjustment of the mA and/or kV according to patient size, and/or use of iterative reconstruction technique. COMPARISON: CT 03/02/2024 FINDINGS: Lung bases: Unremarkable. No mass. No consolidation. ABDOMEN: Liver: Uniform decreased density liver consistent with hepatic steatosis. No evidence of hepatic mass. Gallbladder and bile ducts: Status post cholecystectomy. No ductal dilation. Pancreas: Unremarkable. No mass. No ductal dilation. Spleen: Unremarkable. No splenomegaly. Adrenals: Unremarkable. No mass. Kidneys and ureters: Bosniak type I simple cyst seen within the left kidney which does not require follow-up. Stomach and bowel: Colonic diverticulosis without evidence of acute diverticulitis. Mild to moderate colonic stool burden. No obstruction. PELVIS: Appendix: No findings to suggest acute appendicitis. Bladder: Unremarkable. No mass. Reproductive: Unremarkable as visualized. ABDOMEN and PELVIS: Intraperitoneal space: Unremarkable. No free air. No significant fluid collection. Bones/joints: Degenerative changes are seen within the spine and hips. No acute fracture. No dislocation. Soft tissues: Unremarkable. Vasculature: Calcifications are seen within a nondilated aorta. Lymph nodes: Unremarkable. No enlarged lymph nodes. Other findings: No acute intra-abdominal or pelvic findings. IMPRESSION: No acute findings in the abdomen or pelvis.
--- NOTE | 2024-09-21 04:14 | US ---
EXAM: US Retroperitoneal Limited, Renal CLINICAL HISTORY: ITS.REASON US Reason: recent prostate biopsy TECHNIQUE: Real-time limited ultrasound of the retroperitoneum with image documentation. COMPARISON: No relevant prior studies available. FINDINGS: Right kidney: Unremarkable. No stones. No solid mass. No hydronephrosis. Left kidney: Bosniak type I simple cyst seen at the. Pole of the left kidney measuring 2.7 cm which does not require follow-up. Bladder: Normal. IMPRESSION: No acute findings.
[2024-09-21] MEDS: ONDANSETRON 4 MG ODT STARTER PACK 2 TAB BTL PO STA (05:00)
== END 2024-09-21 05:13 | disposition home or self-care (01) ==
LOC: EC 23:58 → SUPCPDRO 23:58 → EC 09-21 05:13
DX: R30.0 Dysuria (principal); K21.9 Gastro-esophageal reflux disease without esophagitis; I44.0 Atrioventricular block, first degree; E78.5 Hyperlipidemia, unspecified; Z87.891 Personal history of nicotine dependence; Z88.5 Allergy status to narcotic agent; Z88.0 Allergy status to penicillin; Z88.8 Allergy status to other drugs, medicaments and biological substances
CPT/HCPCS: 36415; 80053; 82150; 83605; 83690; 84484; 85025; 85610; 85730; 81001; 76770; 74177; 99284; 96374; 96375 ×2; 96361 ×2; J2405; J1885; S0119; Q9967; J2470

== ENCOUNTER → 2024-12-01 | Outpatient (CLI) | payer MEDICARE, BC ==
--- NOTE | 2024-12-04 08:29 | PE ---
EXAMINATION TYPE: PET CT fusion skull to thigh DATE OF EXAM: 12/01/2024 CLINICAL INDICATION:Male, 79 years old with history of C61 PROSTATE CANCER; TECHNIQUE: Following the intravenous administration of 6.92 mCi of Ga-68 Illuccix (PSMA), whole bod y images are performed from the skull vertex to the midthigh. Images are reviewed on the computer in the coronal, axial, and sagittal planes. Reconstructed rotating images are created on independent [employer] orkstation and reviewed on the computer. A non-contrast CT is performed in conjunction with the PET scan. CT DLP: 699.98 mGycm, Automated exposure control for dose reduction was used. COMPARISON: CT 09/21/2024, 03/02/2024, 10/27/2022, PET/CT None, MRI: 08/19/2024, 08/15/2023 FINDINGS: Mediastinal SUV mean is 1.5. Hepatic parenchyma SUV mean is 4.9. SKULL BASE AND NECK: No suspicious radiotracer activity. CHEST, MEDIASTINUM, AND HILAR REGION: No suspicious radiotracer activity. Prevascular space soft tissue lesion measuring 2.5 x 2.0 cm without radiotracer uptake. ABDOMEN AND PELVIS: Focal radiotracer uptake identified within the right central prostate gland corresponding to MRI find ing. This demonstrates a maximum SUV of 17.2. MUSCULOSKELETAL STRUCTURES: No suspicious radiotracer activity. OTHER CT: Bilateral aphakia. Right maxillary sinus 7 mm mucous retention cyst. Mild cardiomegaly. Mil d coronary artery calcifications. Postcholecystectomy changes. Small hiatal hernia. Elevation of the right hemidiaphragm. Left renal cysts. Atherosclerotic calcification of the aorta and its branches. S igmoid diverticulosis without evidence for acute diverticulitis. Multilevel degenerative changes of t he spine. IMPRESSION: 1. Focal FDG activity within the central right prostate gland corresponding to MRI and most consiste nt with prostate cancer. 2. No suspicious radiotracer activity to suggest metastasis. 3. Indeterminate prevascular space 2.5 cm lesion. Etiologies include thymic neoplasm (thymoma) versu s lymphoma versus germ cell tumor versus other. Further workup is recommended. [facility], , 12/04/2024 8:27 AM
== END | disposition home or self-care (01) ==
LOC: RADPETMAIN 12:57
PROVIDERS: ATTEND Radiology Radiation Oncology
DX: C61 Malignant neoplasm of prostate (principal)
CPT/HCPCS: 78815; A9596

== ENCOUNTER 2024-12-20 09:37 | Day surgery (SDC) | payer MEDICARE, BC ==
[2024-12-16 14:16] VITALS: BMI 25.8
--- NOTE | 2024-12-19 07:42 | P.HPIHPCON ---
History of Present Illness H&P Date: 12/19/24 Chief Complaint: Prostate cancer This is an 79-year-old male with history of prostate cancer. He elected to proceed with radiation therapy. Option of a SpaceOAR gel placement was discussed with him. He is aware risk benefit and rationale of doing this. He is aware of potential of developing rectal toxicity even with a SpaceOAR. Aware of the risk of bleeding, infection, rectal perforation Consent for Procedure: I have explained the operation/procedure to the patient, including the risks, benefits, side effects, alternative therapies (including not receiving the proposed treatment or service), the likelihood of the patient achieving his/her goals, and potential recuperation problems for the procedure/sedation/analgesia, as well as any blood products, if indicated. I also explained to the patient the risks, benefits and side effects of the alternatives, as well as the risks related to not receiving the proposed procedure, care, treatment, or services. Past Medical History Past Medical History: Cancer, Eye Disorder, GERD/Reflux, Hearing Disorder / Deafness, Hyperlipidemia, Liver Disease, Osteoarthritis (OA), Prostate Disorder, Sleep Apnea/CPAP/BIPAP Additional Past Medical History / Comment(s): Hx H-PYLORI, DIVERTICULOSIS, IBS, GERD, tinnitus, bilateral glaucoma, fatty liver, prostate cancer and enlarged prostate, CPAP use. 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 Past Anesthesia/Blood Transfusion Reactions: No Reported Reaction Past Psychological History: No Psychological Hx Reported Smoking Status: Former smoker, Light tobacco smoker Past Alcohol Use History: None Reported Additional Past Alcohol Use History / Comment(s): Smoked for a few years in his teens. Past Drug Use History: None Reported - Past Family History Father History Unknown: Yes Mother History Unknown: Yes Family Medical History: Eye Disorder Additional Family Medical History / Comment(s): Macular degeneration. Sister(s) Family Medical History: Cancer Medications and Allergies Home Medications Medication Instructions Recorded Confirmed Type Fenofibrate 160 mg PO QAM 02/05/21 12/16/24 History Latanoprost/Pf [Latanoprost 0.005% 1 drop BOTH EYES HS 02/05/21 12/16/24 History Eye Drop] Tamsulosin [Flomax] 0.8 mg PO QAM 02/05/21 12/16/24 History Cholecalciferol (Vitamin D3) 125 mcg PO QAM 02/11/21 12/16/24 History [Vitamin D3 (5000 Iu)] Super B Complex W/ Vit C 1 tab PO QAM 02/11/21 12/16/24 History Brimonidine Tartrate [Alphagan P 1 drop BOTH EYES BID 09/17/23 12/16/24 History 0.2% Ophth Soln] Multivitamins, Thera [Multivitamin 1 tab PO QAM 09/17/23 12/16/24 History (formulary)] Potassium Citrate 99 mg PO QAM 09/17/23 12/16/24 History Escitalopram Oxalate [Lexapro] 10 mg PO QAM 12/16/24 12/16/24 History Pantoprazole [Protonix] 40 mg PO QAM 12/16/24 12/16/24 History Allergies Allergy/AdvReac Type Severity Reaction Status Date / Time amoxicillin Allergy Rash/Hives Verified 12/16/24 12:47 promethazine Allergy Dyspnea Verified 12/16/24 12:47 morphine AdvReac Nausea & Verified 12/16/24 12:47 Vomiting Surgical - Exam - General no distress, no pain - Eyes normal ocular movement, no pale - ENT normal nares, normal mucosa - Respiratory normal expansion, normal respiratory effort - Abdomen Abdomen: soft, non tender - Psychiatric oriented to time, oriented to person, oriented to place Assessment and Plan Assessment: OR for SpaceOAR gel placement
[~2024-12-20 09:37] MED LIST changes: -LACTATED RINGERS 1,000 ML IV SCH; -LIDOCAINE 1% (10MG/ML) FOR IV START INTRADERMA PRN; +MIDAZOLAM 2 MG/2 ML VIAL IV PRN; +fentaNYL (PF) 50 MCG/ML 2 ML AMP IV PRN
[2024-12-20] MEDS: IV FLUID CONTINUATION 1,000 ML IV ONE (10:04)
[2024-12-20 10:17] VITALS: RESP 16; TEMP 98
[2024-12-20] MEDS: LACTATED RINGERS 1,000 ML IV SCH (10:27)
[2024-12-20] MEDS ORDERED: GLYCOPYRROLATE 0.2 MG/ML 2 ML VIAL ONE (11:47)
[2024-12-20] MEDS ORDERED: PROPOFOL 10 MG/ML 20 ML VIAL IV ONE (11:47)
[2024-12-20] MEDS: LIDOCAINE 2% (PF) 20 MG/ML 5 ML VIAL SQ ONE ×2 (12:14)
--- NOTE | 2024-12-20 12:33 | P.OP ---
Date of Procedure: 12/20/24 Preoperative Diagnosis: Prostate cancer Postoperative Diagnosis: Same Procedure(s) Performed: SpaceOAR gel placement Implants: SpaceOAR gel placed in the space between the rectum and the prostate Anesthesia: MAC Surgeon: Connor Subramanian Estimated Blood Loss (ml): 0 Pathology: none sent Condition: stable Disposition: PACU Indications for Procedure: This is an 79-year-old male with history of prostate cancer. He elected to proceed with radiation therapy. Option of a SpaceOAR gel placement was discussed with him. He is aware risk benefit and rationale of doing this. He is aware of potential of developing rectal toxicity even with a SpaceOAR. Aware of the risk of bleeding, infection, rectal perforation Description of Procedure: The patient was taken to the operating room and placed in the dorsolithotomy position, with his legs supported in Nagi stirrups. The external genitalia was prepped and draped sterilely. The transrectal ultrasound probe was placed intrarectally. The prostate was imaged. The probe was then placed within the stabilizing stand. A spinal needle was advanced under ultrasonic guidance to the level of the urogenital diaphragm, and lidocaine was used to infiltrate the tissues as the needle was withdrawn. Next, the SpaceOAR needle was passed through the midline of the perineum, 1-2 cm anterior to the anal opening. The needle was slowly advanced under ultrasonic guidance until the needle tip was located within the fat plane between the prostate and rectum, at the level of the mid prostate gland. The needle was confirmed to be midline on the axial imaging. A small amount of normal saline was injected for hydrodissection. Next, the SpaceOAR components were mixed and loaded into the Y connector per protocol. The Y connector was then connected to the needle, and the components were injected slowly over a course of approximately 10 seconds. A total of 10 ml was injected. Significant distance was created between the prostate and rectum, as desired. It should be noted tahira t at no point was there any concern of rectal perforation. The needle was withdrawn, as well as the transrectal ultrasound probe, and the procedure was terminated. The patient tolerated the procedure well and was taken to the recovery room in stable condition
[2024-12-20 12:44] VITALS: BP 130/61; PULSE 52
== END 2024-12-20 13:19 | disposition home or self-care (01) ==
LOC: OR 09:37
PROVIDERS: ATTEND Urology
DX: C61 Malignant neoplasm of prostate (principal); E78.5 Hyperlipidemia, unspecified; G47.30 Sleep apnea, unspecified; Z87.891 Personal history of nicotine dependence; Z88.0 Allergy status to penicillin; Z88.5 Allergy status to narcotic agent
CPT/HCPCS: 55874; C1889; J0690; J2704; J2003; J1596